=== PATIENT | female | born 1980 | race African-American/Black ===

== ENCOUNTER 2016-07-29 20:12 | Inpatient (IN) | payer OTHER ==
[~2016-07-29] VITALS: Ht 180.3 cm; Wt 129.5 kg
[~2016-07-29 20:12] MED LIST: PROV10TA PO
[2016-07-29 20:14] VITALS: BP 141/94; PULSE 108; RESP 16; TEMP 98.1; O2SAT 100
--- NOTE | 2016-07-29 21:22 | PD ---
HPI Chief Complaint: General Weakness Time Seen by Provider: 20:50 Travel History International Travel<30 days: No Contact w/Intl Traveler<30days: No Traveled to known affect area: No History of Present Illness HPI Patient is a 36 year old female who presents emergency department evaluation of vaginal bleeding. Patient states she's had dysfunctional uterine bleeding for several years, it's gotten worse over the last month. She states that she's feels tired, she is not on any iron supplementation because she states it gives her headache. Her bleeding has not worsened over the last month, it is not accompanied by abdominal pain, nausea, shortness of breath, dyspnea on exertion. Patient states that she has an appointment with her gold cutter on 09 August. [facility] Past Medical History Anemia: Yes Cancer: No Diabetes: No Diminished Hearing: No Endocrine: No Gastrointestinal Disorders: No Genitourinary: No Hepatitis: No Hiatal Hernia: No Hypertension: Yes Immune Disorder: No Implanted Vascular Access Dvce: No Musculoskeletal: Yes (BACK) Neurologic: Yes (STROKE at 19) Psychiatric: No Reproductive: Yes (FIBROIDS, dysfunctional uterine bleeding) Immunizations Current: No Thyroid Disease: No Tetanus Vaccination: > 5 Years ?: Not LMP: unknown : 2 Para: 2 Miscarriage: 0 : 0 Dilation and Curettage (D&C): Yes Past Surgical History Gynecologic Surgery: Yes (D&C) Other Surgery: No Family History Family History: Negative Social History Alcohol Use: No Tobacco Use: No Substance Use: No Allergies-Medications (Allergen,Severity, Reaction): Coded Allergies: No Known Allergies (Unverified , 07/29/16) Reported Meds & Prescriptions Reported Meds & Active Scripts Active Review of Systems Except as stated in HPI: all other systems reviewed are Neg General / Constitutional: Positive: Other (fatigue) Genitourinary: Positive: Menorrhagia Physical Exam Narrative GENERAL: Well-nourished, well-developed patient. SKIN: Warm and dry. HEAD: Normocephalic. EYES: No scleral icterus. No injection or drainage. NECK: Supple, trachea midline. No JVD or lymphadenopathy. CARDIOVASCULAR: Regular rate and rhythm without murmurs, gallops, or rubs. RESPIRATORY: Breath sounds equal bilaterally. No accessory muscle use. GASTROINTESTINAL: Abdomen soft, non-tender, nondistended. MUSCULOSKELETAL: No cyanosis, or edema. BACK: Nontender without obvious deformity. No CVA tenderness. Data Data Last Documented VS Vital Signs Date Time Temp Pulse Resp B/P Pulse Ox O2 Delivery O2 Flow Rate FiO2 07/29/16 23:41 98.5 88 20 124/74 98 07/29/16 20:14 Room Air Orders Complete Blood Count With Diff (07/29/16 20:48) Basic Metabolic Panel (Bmp) (07/29/16 20:48) Type And Screen (07/29/16 21:55) Red Blood Cells (Rbc) (07/29/16 22:07) Blood Product Administration .UPON TRANSFUSION (07/29/16 22:07) Us Pelvis Comp W Transvaginal (07/29/16 ) Blood Product Administration .UPON TRANSFUSION (07/29/16 23:30) Acetaminophen (Tylenol) (07/29/16 23:45) Diphenhydramine (Benadryl) (07/29/16 23:45) Admit Order (Ed Use Only) (07/29/16 23:38) Labs Laboratory Tests Test 07/29/16 07/29/16 21:00 21:15 White Blood Count 7.0 TH/MM3 Red Blood Count 3.20 MIL/MM3 Hemoglobin 7.0 GM/DL Hematocrit 21.1 % Mean Corpuscular Volume 66.0 FL Mean Corpuscular Hemoglobin 21.9 PG Mean Corpuscular Hemoglobin 33.2 % Concent Red Cell Distribution Width 27.6 % Platelet Count 520 TH/MM3 Mean Platelet Volume 9.2 FL Neutrophils (%) (Auto) % Lymphocytes (%) (Auto) % Monocytes (%) (Auto) % Eosinophils (%) (Auto) % Basophils (%) (Auto) % Neutrophils # (Auto) TH/MM3 Lymphocytes # (Auto) TH/MM3 Monocytes # (Auto) TH/MM3 Eosinophils # (Auto) TH/MM3 Basophils # (Auto) TH/MM3 CBC Comment AUTO DIFF Differential Total Cells 100 Counted Neutrophils % (Manual) 57 % Lymphocytes % 31 % Monocytes % 8 % Eosinophils % 2 % Basophils % 2 % Neutrophils # (Manual) 4.0 TH/MM3 Differential Comment FINAL DIFF MANUAL Platelet Estimate HIGH Platelet Morphology Comment NORMAL Target Cells 2+ Ovalocytes 1+ Sodium Level 137 MEQ/L Potassium Level 3.7 MEQ/L Chloride Level 103 MEQ/L Carbon Dioxide Level 24.0 MEQ/L Anion Gap 10 MEQ/L Blood Urea Nitrogen 10 MG/DL Creatinine 0.76 MG/DL Estimat Glomerular Filtration 104 ML/MIN Rate Random Glucose 104 MG/DL Calcium Level 8.8 MG/DL Blood Type O POSITIVE Antibody Screen NEGATIVE Crossmatch Leukocyte-Reduced Red Blood Cells Blood Bank Comment MDM Medical Decision Making Medical Screen Exam Complete: Yes Emergency Medical Condition: Yes Medical Record Reviewed: Yes Interpretation(s) Vital Signs Date Time Temp Pulse Resp B/P Pulse Ox O2 Delivery O2 Flow Rate FiO2 07/29/16 20:37 99 20 100 07/29/16 20:14 98.1 108 16 141/94 100 Room Air Differential Diagnosis Anemia versus dysfunctional uterine bleeding versus uterine fibroids versus other Narrative Course Patient is a 36-year-old female who presents emergency evaluation of dysfunctional uterine bleeding. Bleeding has been ongoing for several years but for the last month she states it's gotten worse. Patient was seen and evaluated in emergency Department approximately one week ago, at that time her hemoglobin was 9.8. We'll repeat a CBC and BMP at this time. Discussed with patient that if her hemoglobin is stable she will need to follow-up with SOFTWARE APPLICATIONS ARCHITECT as scheduled on August 09. Patient was encouraged to try a different oral iron supplementation. Patient's vital signs are stable, she is well oxygenated on room air, heart rate is in the 90s. CBC resulted with a hemoglobin of 7, patient was 9.8 approximately week and a half ago. Type and crossmatch ordered, ordered 2 units of packed red blood cells for transfusion. Discussed results with patient and her significant other. Discussed patient's presentation and lab findings with on-call COMMUNITY LIVING COACH Dr. Torres. He stated that he would come to emergency department to evaluate patient. Dr. Torres will admit patient to his service, he intends to perform a hysterectomy in the morning. Patient is hemodynamically stable, she is agreeable to plan. Diagnosis Primary Impression: Acute blood loss anemia Additional Impression: Menometrorrhagia Admitting Information Admitting Physician Requests: Admit Condition: Stable Giselle De La Fuente Jul 29, 2016 21:22
[2016-07-29 21:31] LABS: HEMATOCRIT 21.1 % (35.0-46.0); MEAN CORPUSCULAR HEMOGLOBIN 21.9 PG (27.0-34.0); MEAN CORPUSCULAR HGB CONC 33.2 % (32.0-36.0); PLATELET COUNT 520 TH/MM3 (150-450); RED CELL DISTRIBUTION WIDTH 27.6 % (11.6-17.2)
[2016-07-29 21:35] LABS: HEMO FLAGS AUTO DIFF
[2016-07-29 21:42] LABS: POTASSIUM 3.7 MEQ/L (3.5-5.1)
[2016-07-29 22:15] LABS: BASOPHILS 2 % (0-2); EOSINOPHILS 2 % (0-4); OVALOCYTES 1+ (NORMAL); PLATELET ESTIMATE SMEAR HIGH (NORMAL); PLATELET MORPHOLOGY NORMAL (NORMAL); POLYS (SEG NEUTROPHILS) 57 % (16-70); SCAN/DIFF FINAL DIFF MANUAL; TARGET CELLS 2+ (NORMAL); WBC DIFF SAMPLE 100
[2016-07-29 23:41] VITALS: BP 124/74; PULSE 88; RESP 20; TEMP 98.5; O2SAT 98
[2016-07-29] MEDS ORDERED: diphenhydrAMINE HCL 25 MG CAP PO ONE (23:45)
[2016-07-29] MEDS ORDERED: ACETAMINOPHEN 325 MG TAB PO ONE (23:45)
[2016-07-30] VITALS (10 sets, daily range): BP systolic 72–122; BP diastolic 66–81; PULSE 74–96; RESP 16–20; TEMP 96.9–98.4; O2SAT 97–100
[2016-07-30] MEDS: LACTATED RINGER'S 1000 ML INJ 1,000 ML IV SCH ×3 (00:45→13:07)
[2016-07-30] MEDS ORDERED: MORPHINE SULFATE 4 MG/ML INJ IV PUSH PRN (00:45)
[2016-07-30] MEDS ORDERED: oxyCODONE/ACETAMINOPHEN 5 MG/325 MG TAB PO PRN (00:45)
--- NOTE | 2016-07-30 01:05 | RADRPT ---
EXAM DATE/TIME: 07/30/2016 00:19 [facility] COMPARISON: No previous studies available for comparison. INDICATIONS : Bleeding. MEDICAL HISTORY : Hypertension. Fibroids. Anemia. SURGICAL HISTORY : Diliation and curettage. ENCOUNTER: Subsequent ACUITY: 3 days PAIN SCORE: 6/10 LOCATION: Bilateral pelvis MEASUREMENTS: UTERUS: 10.5 x 7.9 x 8.2 cm ENDOMETRIAL STRIPE: 4 mm RIGHT OVARY: 3.4 x 2.5 x 2.7 cm LEFT OVARY: 3.5 x 1.6 x 2.0 cm FINDINGS: UTERUS: The myometrium has homogeneous echotexture with 2 measurable masses.2 fundal masses one 2.6 x 3.2 x 2 .0 cm, the other 2.5 x 2.3 x 2.5 cm both leiomyoma RIGHT OVARY: Ovary contains no mass or significant cystic lesion. LEFT OVARY: Ovary contains no mass or significant cystic lesion. MISCELLANEOUS: No free fluid. CONCLUSION: Mild leiomyomatous uterus. Endometrial stripe is normal. Both ovaries unremarkable for age Joes Guadalupe Argueta MD on July 30, 2016 at 1:03 Board Certified Radiologist. This report was verified electronically.
--- NOTE | 2016-07-30 02:02 | HHI.HP ---
HPI Chief Complaint Vaginal bleeding Date Seen: Jul 29, 2016 Time Seen: 23:23 Travel History International Travel<30 Days: No Contact w/Intl Traveler<30Days: No Known Affected Area: No History of Present Illness HPI 36-year-old , last menstrual period was May 2016, patient presents to the ER complaining of profuse vaginal bleeding with passage of clots. Patient stated that for the past couple of months her bleeding has gotten worse , she was admitted from 07/06/16 to 07/09/16, at that time patient received 4 units of packed red blood cells transfusion. Patient reported that in February 2016 she underwent dilatation and curettage with endometrial ablation, however this was unsuccessful and she continues to bleed. Today the patient denies dizziness, lightheadedness, nausea ,vomiting, fever and chills. No loss of consciousness. Patient is requesting hysterectomy at this time. Para: 2 : 2 Miscarriage: 0 : 0 History Past Medical History Narrative Medical History of fibroids, abnormal uterine bleeding (status post blood transfusion ) , hypertension Obstetric History Obstetric History Spontaneous vaginal delivery 2 Past Surgical History Narrative Surgical Status post Dilatation and curettage 1, status post endometrial ablation February 2016 Family History Narrative Family History Grandfather with prostate cancer, father has a lump removed in the genital area , mother has hypertension, brother has heart disease and seizure disorder, sister has seizure disorder. Social History Alcohol Use: No Tobacco Use: No Substance Abuse: No Allergies-Medications (Allergen,Severity, Reaction): Coded Allergies: No Known Allergies (Unverified , 07/29/16) Home Meds Discontinued Scripts Medroxyprogesterone Acetate (Provera)10 Mg Tab10 Mg PO DAILY #7 TAB Ref 0 Start day 21 Prov:Ema Aldridge 07/17/16 Review of Systems Except as stated in HPI: all other systems reviewed are Neg Genitourinary: Vaginal Bleeding, Other (fibroids) Physical Exam Narrative GENERAL: Well-nourished, well-developed patient. SKIN: Warm and dry. HEAD: Normocephalic and atraumatic. EYES: No scleral icterus. No injection or drainage. ENT: No nasal drainage noted. Mucous membranes pink. Airway patent. NECK: Supple, trachea midline. No JVD. CARDIOVASCULAR: Regular rate and rhythm without murmurs, gallops, or rubs. RESPIRATORY: Breath sounds equal bilaterally. No accessory muscle use. BREASTS: Bilateral exam showed no masses , no retractions, no nipple discharge. ABDOMEN/GI: Abdomen soft, non-tender, bowel sounds present, no rebound, no guarding GENITOURINARY: External Genitalia: intact and normal in appearance BUS glands: Normal PELVIC EXAM: Normal external female genitalia, vulva no lesions, vagina no lesions,there is small amount of blood clot in the vaginal vault , cervix no lesions , there there is no active bleeding noted , the uterus is enlarged in size consistent with fibroid uterus EXTREMITIES: No cyanosis or edema. BACK: Nontender without obvious deformity. No CVA tenderness. NEUROLOGICAL: Awake and alert. Motor and sensory grossly within normal limits. Five out of 5 muscle strength in all muscle groups. Normal speech. Data Data Vital Signs Reviewed: Yes Orders Complete Blood Count With Diff (07/29/16 20:48) Basic Metabolic Panel (Bmp) (07/29/16 20:48) Type And Screen (07/29/16 21:55) Red Blood Cells (Rbc) (07/29/16 22:07) Blood Product Administration .UPON TRANSFUSION (07/29/16 22:07) Blood Product Administration .UPON TRANSFUSION (07/29/16 23:30) Acetaminophen (Tylenol) (07/29/16 23:45) Diphenhydramine (Benadryl) (07/29/16 23:45) Admit Order (Ed Use Only) (07/29/16 23:38) Us Pelvis Comp Doorperson/Non-Preg (07/30/16 ) Diet Regular Basic (07/30/16 Breakfast) Lactated Ringer's 1000 Ml Inj (Lr 1000 M (07/30/16 00:45) Morphine Inj (Morphine Inj) (07/30/16 00:45) Oxycodone-Acetamin 5-325 Mg (Percocet (07/30/16 00:45) Labs Laboratory Tests Test 07/29/16 07/29/16 21:00 21:15 White Blood Count 7.0 Red Blood Count 3.20 Hemoglobin 7.0 Hematocrit 21.1 Mean Corpuscular Volume 66.0 Mean Corpuscular Hemoglobin 21.9 Mean Corpuscular Hemoglobin 33.2 Concent Red Cell Distribution Width 27.6 Platelet Count 520 Mean Platelet Volume 9.2 Neutrophils (%) (Auto) Lymphocytes (%) (Auto) Monocytes (%) (Auto) Eosinophils (%) (Auto) Basophils (%) (Auto) Neutrophils # (Auto) Lymphocytes # (Auto) Monocytes # (Auto) Eosinophils # (Auto) Basophils # (Auto) CBC Comment AUTO DIFF Differential Total Cells 100 Counted Neutrophils % (Manual) 57 Lymphocytes % 31 Monocytes % 8 Eosinophils % 2 Basophils % 2 Neutrophils # (Manual) 4.0 Differential Comment FINAL DIFF MANUAL Platelet Estimate HIGH Platelet Morphology Comment NORMAL Target Cells 2+ Ovalocytes 1+ Sodium Level 137 Potassium Level 3.7 Chloride Level 103 Carbon Dioxide Level 24.0 Anion Gap 10 Blood Urea Nitrogen 10 Creatinine 0.76 Estimat Glomerular Filtration 104 Rate Random Glucose 104 Calcium Level 8.8 Blood Type O POSITIVE Antibody Screen NEGATIVE Crossmatch Leukocyte-Reduced Red Blood Cells Blood Bank Comment Assessment/Plan Problem List: (1) Leiomyoma (2) Abnormal uterine bleeding (AUB) (3) Acute blood loss anemia Assessment and Plan 36-year-old 002 with a history of leiomyomata, presents with abnormal uterine bleeding and acute blood loss anemia. Patient is hemodynamically stable. 1. Leiomyoma * We will order a pelvic ultrasound * Patient requests hysterectomy * We'll consult with a ENCODING CLERK attending sap integration architect 2. Abnormal uterine bleeding * Consider endometrial biopsy for tissue diagnosis * Patient is not bleeding at this time, she remains hemodynamically stable * We will transfuse 2 units of packed red blood cells * Bleeding precautions 3. Acute blood loss anemia * Patient is hemodynamically stable * We will transfuse 2 units of packed red blood cells * Bleeding precautions * Monitor vital signs Discharge Planning We'll discharge patient to home when bleeding is resolved Duane Nieves MD Jul 30, 2016 02:02
--- NOTE | 2016-07-30 14:10 | HHI.FPPN ---
Subjective Remarks No acute events overnight. Vital signs WNL. This morning patient states that she feels well but continues to have spotting. However, pt reports that the vaginal bleeding comes and goes in severity on a daily basis. Does feel better since getting fluids and transfusion. Objective Vitals Vital Signs Date Time Temp Pulse Resp B/P Pulse Ox O2 Delivery O2 Flow Rate FiO2 07/30/16 12:00 97.5 82 16 118/69 97 07/30/16 09:38 96.9 74 16 72/ 100 07/30/16 09:26 98.1 75 17 113/81 99 07/30/16 08:00 97.0 77 16 121/70 100 07/30/16 05:11 97.2 85 20 118/70 98 07/30/16 04:31 82 20 116/76 100 07/30/16 04:28 98.4 89 20 119/77 99 07/30/16 03:53 89 20 111/66 99 07/30/16 01:27 97.9 96 20 122/75 100 07/29/16 23:41 98.5 88 20 124/74 98 07/29/16 20:37 99 20 100 07/29/16 20:14 98.1 108 16 141/94 100 Room Air I/O 07/29/16 07/29/16 07/29/16 07/30/16 07/30/16 07/30/16 07:00 15:00 23:00 07:00 15:00 23:00 Intake Total 250 ml Balance 250 ml Intake IV Total 250 ml # Voids 1 Result Diagram: 07/29/16 2100 07/29/16 2100 Imaging Last Impressions Pelvis Ultrasound 07/30/16 0000 Signed Impressions: Service Date/Time: Saturday, July 30, 2016 00:19 - CONCLUSION: Mild leiomyomatous uterus. Endometrial stripe is normal. Both ovaries unremarkable for age Jose Guadalupe Argueta MD Objective Remarks GENERAL: Well-nourished, well-developed patient in no apparent distress. SKIN: Warm and dry. EYES: No scleral icterus. No injection or drainage. CARDIOVASCULAR: Regular rate and rhythm. No murmurs, gallops, or rubs. RESPIRATORY: No accessory muscle use. Clear to auscultation. Breath sounds equal bilaterally. GASTROINTESTINAL: Abdomen soft, non-tender, nondistended. Hepatic and splenic margins not palpable. MUSCULOSKELETAL: Extremities without clubbing, cyanosis, or edema. No obvious deformities. Normal gait NEUROLOGICAL: Awake and alert. Motor grossly within normal limits. Normal speech. PSYCHIATRIC: Appropriate mood and affect; insight and judgment normal. A/P Assessment and Plan 36-year-old 002 with a history of leiomyomata, presents with abnormal uterine bleeding and acute blood loss anemia. Patient is hemodynamically stable. 1. Abnormal uterine bleeding-recurrent. Has already required a transfusion a few weeks ago. * Initial H&H of 7.0/21.1 * S/p 3 PRBCs transfusion. Repeat H&H pending * Consider endometrial biopsy for tissue diagnosis 2. Leiomyoma * Pelvic ultrasound: Mild Leiomyomatous uterus. Normal endometrial stripe. Ovaries unremarkable. * Pt is scheduled to be seen by her ASSISTANT PUBLIC DEFENDER physician on 08/09/2016 as this was their only available appt. Will call on Sunday/Sunday to try and be seen sooner. Discharge: Today or tomorrow pending repeat H&H and status of vaginal bleeding. Pt fully aware of importance of keeping upcoming ASSISTANT PUBLIC DEFENDER appt and trying to get a sooner time. devon Cox Problem List: (1) Fibroid uterus Status: Chronic (2) Acute blood loss anemia Status: Acute (3) Abnormal uterine bleeding (AUB) Status: Acute Olga Devlin MD R2 Jul 30, 2016 14:10
--- NOTE | 2016-07-30 15:51 | HHI.DCPOC ---
Discharge Care Plan Diagnosis: (1) Abnormal uterine bleeding (AUB) (2) Leiomyoma Goals to Promote Your Health * To prevent worsening of your condition and complications * To maintain your health at the optimal level Directions to Meet Your Goals Take your medications as prescribed Follow your dietary instruction Follow activity as directed Keep your appointments as scheduled Take your immunizations and boosters as scheduled If your symptoms worsen call your PCP, if no PCP go to Urgent Care Center or Emergency Room Smoking is Dangerous to Your Health. Avoid second hand smoke Call the 24-hour hour crisis hotline for domestic abuse at Olga Devlin MD R2 Jul 30, 2016 15:51
[2016-07-30 16:33] LABS: AUTOMATED NEUTROPHIL # 2.9 TH/MM3 (1.8-7.7); BASOPHIL % 0.7 % (0.0-2.0); EOSINOPHIL # 0.2 TH/MM3 (0-0.4); EOSINOPHIL % 3.4 % (0.0-4.0); LYMPH % 40.7 % (9.0-44.0); LYMPHOCYTE # 2.6 TH/MM3 (1.0-4.8); MEAN CELL VOLUME 69.5 FL (80.0-100.0); MEAN CORPUSCULAR HEMOGLOBIN 23.7 PG (27.0-34.0); MEAN CORPUSCULAR HGB CONC 34.2 % (32.0-36.0); MONO % 10.8 % (0.0-8.0); NEUT % 44.4 % (16.0-70.0); PLATELET COUNT 447 TH/MM3 (150-450); RED BLOOD COUNT 3.59 MIL/MM3 (4.00-5.30); RED CELL DISTRIBUTION WIDTH 27.9 % (11.6-17.2); WHITE BLOOD COUNT 6.4 TH/MM3 (4.0-11.0)
[2016-07-30 16:34] LABS: HEMO FLAGS AUTO DIFF
--- NOTE | 2016-07-30 17:21 | HHI.FPPN ---
Addendum to progress note ADDENDUM Reason for addendum: Additonal documentation Additional information Repeat H&H after blood transfusion only showed a minimal increase to 8.5 hemoglobin. Clinically patient is doing well and she states that she is only having vaginal spotting. Vital signs are otherwise unremarkable. Counseled patient about the importance of low/minimum activity level/bed rest to help minimize any worsening vaginal bleeding until seen by her renewable energy technician. Again expressed to the patient that she is to call her doctor's office on Sunday or Sunday to try to make a sooner appointment due to these recurrent hospitalizations. Patient states she is comfortable with being discharged today and understands all recommendations. Olga Melara Dr., MD R2 Jul 30, 2016 17:21
[2016-07-30 17:24] LABS: TARGET CELLS 1+ (NORMAL)
[2016-07-30 17:25] LABS: PLATELET ESTIMATE SMEAR HIGH (NORMAL); PLATELET MORPHOLOGY NORMAL (NORMAL); SCAN/DIFF AUTO DIFF CONFIRMED
== END 2016-07-30 18:10 | disposition home or self-care (01) | DRG 812 ==
LOC: NEPE 20:12 → NEDA 23:41 → N07A 07-30 04:51
PROVIDERS: ADMIT Obstetrics & Gynecology; ATTEND Obstetrics & Gynecology
PROC: 30233N1 Transfusion of Nonautologous Red Blood Cells into Peripheral Vein, Percutaneous Approach (ICD-10-PCS; principal; 2016-07-30)
DX: D62 Acute posthemorrhagic anemia (principal); D25.9 Leiomyoma of uterus, unspecified; N93.8 Other specified abnormal uterine and vaginal bleeding; Z86.73 Personal history of transient ischemic attack (TIA), and cerebral infarction without residual deficits
CPT/HCPCS: 36430; 76856; 80048; 85007; 85025; 85027; 86850; 86900; 86901; 86920; 99285; J7120; P9016

== ENCOUNTER 2016-08-16 08:27 | Inpatient (IN) | payer OTHER ==
[~2016-08-16] VITALS: Ht 170.2 cm; Wt 80.0 kg
[2016-08-16 08:29] VITALS: BP 134/83; PULSE 90; RESP 20; TEMP 98; O2SAT 98
--- NOTE | 2016-08-16 09:22 | PD ---
HPI Chief Complaint: Edema Time Seen by Provider: 09:06 Travel History International Travel<30 days: No Contact w/Intl Traveler<30days: No Traveled to known affect area: No History of Present Illness HPI 36yo F with PMH of uterine fibroids and dysfunctional uterine bleeding presents to the ED with c/o bilateral lower extremity edema since blood transfusion beginning of this month. Pt states her vaginal bleeding started again this week , using multiple pads a day. Pt was admitted for anemia secondary to uterine bleeding and transfused 3 PRBC. Pt states she has feet edema before but this is the worst it has been. Pt states she is always sob since she had the anemia. Denies any calf pain, chest pain, n/v, abdominal pain, fever. Pt has started to have vaginal bleeding again and has not seen AUTOMOTIVE CENTER MANAGER yet. Pt also with frontal headache for 2-3 days that is her usual headache. Denies any neck pain , focal weakness or numbness, visual changes. Did not take anything for pain. PFSH Past Medical History Anemia: Yes Cancer: No Cardiovascular Problems: Yes (HTN) Diabetes: No Diminished Hearing: No Endocrine: No Gastrointestinal Disorders: No Genitourinary: No Hepatitis: No Hiatal Hernia: No Hypertension: Yes Immune Disorder: No Implanted Vascular Access Dvce: No Musculoskeletal: Yes (BACK) Neurologic: Yes (STROKE at 19) Psychiatric: No Reproductive: Yes (FIBROIDS, dysfunctional uterine bleeding) Respiratory: Yes Immunizations Current: No Thyroid Disease: No ?: Not : 2 Para: 2 Miscarriage: 0 : 0 Dilation and Curettage (D&C): Yes Past Surgical History Gynecologic Surgery: Yes (D&C) Other Surgery: No Social History Alcohol Use: No Tobacco Use: No Substance Use: No Allergies-Medications (Allergen,Severity, Reaction): Coded Allergies: No Known Allergies (Unverified , 08/16/16) Reported Meds & Prescriptions Reported Meds & Active Scripts Active No Active Prescriptions or Reported Medications Review of Systems Except as stated in HPI: all other systems reviewed are Neg Physical Exam Narrative GENERAL: 36yo F not in distress. SKIN: Warm and dry. HEAD: Atraumatic. Normocephalic. EYES: Pupils equal and round. No scleral icterus. No injection or drainage. ENT: No nasal bleeding or discharge. Mucous membranes pink and moist. NECK: Trachea midline. No JVD. CARDIOVASCULAR: Regular rate and rhythm. No murmur appreciated. RESPIRATORY: No accessory muscle use. Clear to auscultation. Breath sounds equal bilaterally. GASTROINTESTINAL: Abdomen soft, suprapubic tenderness to palpation. No rebound tenderness or guarding. PELVIC: Positive blood in vaginal vault. No CMT or adnexal tenderness. MUSCULOSKELETAL: +Pitting edema in bilateral tib/fib and dorsum of bilateral feet. No calf tenderness bilaterally. DP 2+. NEUROLOGICAL: Awake and alert. No obvious cranial nerve deficits. Motor grossly within normal limits. Normal speech. PSYCHIATRIC: Appropriate mood and affect; insight and judgment normal. Data Data Last Documented VS Vital Signs Date Time Temp Pulse Resp B/P Pulse Ox O2 Delivery O2 Flow Rate FiO2 08/16/16 11:30 20 08/16/16 08:29 98.0 90 134/83 98 Room Air Orders Complete Blood Count With Diff (08/16/16 09:16) Comprehensive Metabolic Panel (08/16/16 09:16) B-Type Natriuretic Peptide (08/16/16 09:16) Ketorolac Inj (Toradol Inj) (08/16/16 09:30) Admit Order (Ed Use Only) (08/16/16 11:56) Labs Laboratory Tests Test 08/16/16 09:50 White Blood Count 5.9 TH/MM3 Red Blood Count 3.66 MIL/MM3 Hemoglobin 7.9 GM/DL Hematocrit 24.1 % Mean Corpuscular Volume 65.8 FL Mean Corpuscular Hemoglobin 21.6 PG Mean Corpuscular Hemoglobin 32.9 % Concent Red Cell Distribution Width 30.3 % Platelet Count 214 TH/MM3 Mean Platelet Volume 8.7 FL Neutrophils (%) (Auto) % Lymphocytes (%) (Auto) % Monocytes (%) (Auto) % Eosinophils (%) (Auto) % Basophils (%) (Auto) % Neutrophils # (Auto) TH/MM3 Lymphocytes # (Auto) TH/MM3 Monocytes # (Auto) TH/MM3 Eosinophils # (Auto) TH/MM3 Basophils # (Auto) TH/MM3 CBC Comment AUTO DIFF Differential Total Cells 100 Counted Neutrophils % (Manual) 71 % Lymphocytes % 22 % Monocytes % 3 % Eosinophils % 2 % Basophils % 2 % Neutrophils # (Manual) 4.2 TH/MM3 Differential Comment FINAL DIFF MANUAL Platelet Estimate NORMAL Platelet Morphology Comment NORMAL Target Cells 2+ Keratocytes OCC Sodium Level 141 MEQ/L Potassium Level 3.4 MEQ/L Chloride Level 107 MEQ/L Carbon Dioxide Level 26.1 MEQ/L Anion Gap 8 MEQ/L Blood Urea Nitrogen 7 MG/DL Creatinine 0.73 MG/DL Estimat Glomerular Filtration 109 ML/MIN Rate Random Glucose 102 MG/DL Calcium Level 8.9 MG/DL Total Bilirubin 0.5 MG/DL Aspartate Amino Transf 13 U/L (AST/SGOT) Alanine Aminotransferase 16 U/L (ALT/SGPT) Alkaline Phosphatase 92 U/L B-Type Natriuretic Peptide 19 PG/ML Total Protein 8.2 GM/DL Albumin 3.5 GM/DL Human Chorionic Gonadotropin, LESS THAN 1 Quant MIU/ML MDM Medical Decision Making Medical Screen Exam Complete: Yes Emergency Medical Condition: Yes Differential Diagnosis CHF vs. nephrotic syndrome vs. venous insufficiency Narrative Course 36yo F with anemia secondary to uterine fibroids. H/H 7.9/24.1. Will transfuse 1 unit of PRBC since pt is actively bleeding. VS stable. BNP 19. Liver enzyme normal. Pt is very frustrated with her uterine bleeding. Discussed with Dr. John CHURCHILL who states that she will let Dr. Tafoya know to see the patient and discuss hysterectomy during this admission. Discussed with family resident physician and admitted to Dr. Shah for symptomatic anemia. Diagnosis Primary Impression: Abnormal uterine bleeding (AUB) Admitting Information Admitting Physician Requests: Admit Scripts No Active Prescriptions or Reported Meds Stephanie Hadley DO Aug 16, 2016 09:22
[2016-08-16] MEDS ORDERED: KETOROLAC TROMETHAMINE 30 MG/ML (IVP) VIAL IV PUSH ONE (09:30)
[2016-08-16 10:06] LABS: HEMATOCRIT 24.1 % (35.0-46.0); MEAN CELL VOLUME 65.8 FL (80.0-100.0); MEAN CORPUSCULAR HEMOGLOBIN 21.6 PG (27.0-34.0); MEAN CORPUSCULAR HGB CONC 32.9 % (32.0-36.0); PLATELET COUNT 214 TH/MM3 (150-450); RED BLOOD COUNT 3.66 MIL/MM3 (4.00-5.30); RED CELL DISTRIBUTION WIDTH 30.3 % (11.6-17.2); WHITE BLOOD COUNT 5.9 TH/MM3 (4.0-11.0)
[2016-08-16 10:12] LABS: HEMO FLAGS AUTO DIFF
[2016-08-16 10:23] LABS: ALT (GPT) 16 U/L (10-53); ANION GAP 8 MEQ/L (5-15); AST (GOT) 13 U/L (15-37); BICARBONATE 26.1 MEQ/L (21.0-32.0); BLOOD UREA NITROGEN 7 MG/DL (7-18); CHLORIDE 107 MEQ/L (98-107); GLOMERULAR FILTRATION RATE 109 ML/MIN (>89); POTASSIUM 3.4 MEQ/L (3.5-5.1); SODIUM (NA) 141 MEQ/L (136-145)
[2016-08-16 10:25] LABS: ALKALINE PHOSPHATASE 92 U/L (45-117); TOTAL BILIRUBIN ADULT 0.5 MG/DL (0.2-1.0)
[2016-08-16 10:59] LABS: BASOPHILS 2 % (0-2); EOSINOPHILS 2 % (0-4); NEUTROPHIL # MANUAL DIFF 4.2 TH/MM3 (1.8-7.7); POLYS (SEG NEUTROPHILS) 71 % (16-70); SCAN/DIFF FINAL DIFF MANUAL; WBC DIFF SAMPLE 100
[2016-08-16 11:00] LABS: KERATOCYTES OCC (NORMAL); PLATELET ESTIMATE SMEAR NORMAL (NORMAL); PLATELET MORPHOLOGY NORMAL (NORMAL); TARGET CELLS 2+ (NORMAL)
[2016-08-16] MEDS ORDERED: SODIUM CHLORIDE 0.9% FLUSH 5 ML FLUSH FLUSH PRN (12:15)
[2016-08-16] MEDS ORDERED: SODIUM CHLOR 0.9% 250 ML INJ 250 ML IV ONE (12:15)
[2016-08-16] MEDS ORDERED: ONDANSETRON HCL 4 MG/2 ML VIAL IVP PRN (12:15)
[2016-08-16] MEDS ORDERED: ACETAMINOPHEN 325 MG TAB PO PRN (12:15)
[2016-08-16] MEDS ORDERED: NALOXONE HCL 0.4 MG/ML AMP IV PRN (12:15)
[2016-08-16] MEDS ORDERED: FUROSEMIDE 20 MG TAB PO ONE (12:30)
--- NOTE | 2016-08-16 12:34 | HHI.HP ---
[facility] Service Family Medicine Primary Care Physician No Primary Care Physician Admission Diagnosis Symptomatic anemia Diagnoses: Chief Complaint: Vaginal bleeding International Travel<30 Days: No Contact w/Intl Traveler<30days: No Known Affected Area: No History of Present Illness Is a 36-year-old female with a past medical history significant for leiomyomata and abnormal uterine bleeding requiring blood transfusions who presents today for vaginal bleeding. Of note, patient was hospitalized from 07/29-07/30 for acute blood loss anemia secondary to abnormal uterine bleeding as well. She was transfused a total of 3 units of packed red blood cells. After discharge, she continued spotting for about one week and then stopped bleeding altogether for about 3 days. After that, the bleeding started again and then turned into passing of large clots. The bleeding has been getting progressively worse over the past week. Today, she has soaked 4 pads in the last 23 hours. She also complains of fatigue, occasional shortness of breath, and a constant, aching, frontal headache. She also endorses central pelvic pain described as a sharp pain that comes and goes. She denies any chest pain, dizziness, or lightheadedness. Her feet initially swelled up after her transfusions during her last hospitalization, and have become progressively more swollen over the past 2 days. She was supposed to follow-up with [place] [facility] at an appointment yesterday, but was apparently told not to come to the appointment because she was actively bleeding. She rescheduled that appointment for next week. Review of Systems Constitutional: COMPLAINS OF: Fatigue, DENIES: Fever, Chills, Dizziness Endocrine: COMPLAINS OF: Abnorml menstrual pattern Eyes: DENIES: Blurred vision, Vision loss Ears, nose, mouth, throat: DENIES: Running Nose Respiratory: COMPLAINS OF: Shortness of breath (occasional), DENIES: Cough Cardiovascular: COMPLAINS OF: Lower Extremity Edema, DENIES: Chest pain, Syncope Gastrointestinal: COMPLAINS OF: Abdominal pain, DENIES: Black stools, Bloody stools, Constipation, Diarrhea, Nausea, Vomiting Genitourinary: COMPLAINS OF: Abnormal vaginal bleeding, DENIES: Urinary frequency, Hematuria, Dysuria, Vaginal discharge Musculoskeletal: COMPLAINS OF: Back pain Integumentary: DENIES: Rash Hematologic/lymphatic: DENIES: Bruising Neurologic: COMPLAINS OF: Headache Psychiatric: DENIES: Mood changes Past Family Social History Past Medical History Leiomyomata Obstetric history: s/p x 2 in 1998, 1999 without complications Past Surgical History D &C, endometrial ablation in February 2016 for abnormal uterine bleeding Reported Medications Reported Meds & Active Scripts Active No Active Prescriptions or Reported Medications Allergies: Coded Allergies: No Known Allergies (Unverified , 08/16/16) Family History Mother: Hysterectomy due to abnormal uterine bleeding, hypertension Father: Hypertension Brother: DM type II, seizures Social History No tobacco, alcohol, or illicit drug use. Lives with . Physical Exam Vital Signs Vital Signs Date Time Temp Pulse Resp B/P Pulse Ox O2 Delivery O2 Flow Rate FiO2 08/16/16 11:30 20 08/16/16 08:29 98.0 90 20 134/83 98 Room Air Physical Exam GENERAL: This is a well-nourished, well-developed obese female patient, in no apparent distress. SKIN: No rashes, ecchymoses or lesions. Cool and dry. HEAD: Atraumatic. Normocephalic. No temporal or scalp tenderness. EYES: Pupils equal round and reactive. Extraocular motions intact. No scleral icterus. No injection or drainage. ENT: Nose without bleeding, purulent drainage or septal hematoma. Throat without erythema, tonsillar hypertrophy or exudate. Uvula midline. Airway patent. NECK: Trachea midline. No JVD or lymphadenopathy. Supple, nontender, no meningeal signs. CARDIOVASCULAR: Regular rate and rhythm without murmurs, gallops, or rubs. RESPIRATORY: Clear to auscultation. Breath sounds equal bilaterally. No wheezes , rales, or rhonchi. GASTROINTESTINAL: Abdomen soft, tender to palpation in central lower abdomen, nondistended. No hepato-splenomegaly, or palpable masses. No guarding. MUSCULOSKELETAL: Bilateral lower extremities with 1+ pitting edema up to the mid tibia. NEUROLOGICAL: Awake and alert. Cranial nerves II through XII intact. Motor and sensory grossly within normal limits. Normal speech. Laboratory Laboratory Tests Test 08/16/16 09:50 White Blood Count 5.9 Red Blood Count 3.66 Hemoglobin 7.9 Hematocrit 24.1 Mean Corpuscular Volume 65.8 Mean Corpuscular Hemoglobin 21.6 Mean Corpuscular Hemoglobin 32.9 Concent Red Cell Distribution Width 30.3 Platelet Count 214 Mean Platelet Volume 8.7 Neutrophils (%) (Auto) Lymphocytes (%) (Auto) Monocytes (%) (Auto) Eosinophils (%) (Auto) Basophils (%) (Auto) Neutrophils # (Auto) Lymphocytes # (Auto) Monocytes # (Auto) Eosinophils # (Auto) Basophils # (Auto) CBC Comment AUTO DIFF Differential Total Cells 100 Counted Neutrophils % (Manual) 71 Lymphocytes % 22 Monocytes % 3 Eosinophils % 2 Basophils % 2 Neutrophils # (Manual) 4.2 Differential Comment FINAL DIFF MANUAL Platelet Estimate NORMAL Platelet Morphology Comment NORMAL Target Cells 2+ Keratocytes OCC Sodium Level 141 Potassium Level 3.4 Chloride Level 107 Carbon Dioxide Level 26.1 Anion Gap 8 Blood Urea Nitrogen 7 Creatinine 0.73 Estimat Glomerular Filtration 109 Rate Random Glucose 102 Calcium Level 8.9 Total Bilirubin 0.5 Aspartate Amino Transf 13 (AST/SGOT) Alanine Aminotransferase 16 (ALT/SGPT) Alkaline Phosphatase 92 B-Type Natriuretic Peptide 19 Total Protein 8.2 Albumin 3.5 Result Diagram: 08/16/16 0950 08/16/16 0950 Assessment and Plan Assessment and Plan Patient is a 36-year-old female with a past medical history significant for leiomyomata and abnormal uterine bleeding requiring blood transfusions who presents today for vaginal bleeding and is admitted for acute blood loss anemia secondary to abnormal uterine bleeding. Code Status Full Code Discussed Condition With dw Dr. Shah and Dr. Monteiro Problem List: (1) Acute blood loss anemia Status: Acute Plan: H/H 7.9/24.1 on admission Last hemoglobin was 8.5 on 07/30 after 3 units PRBC Symptoms include occasional shortness of breath, fatigue, and headache Acute blood loss anemia secondary to vaginal bleeding Plan: - Consult Gynecology - 1 unit PRBC pending, follow-up post-transfusion H/H and monitor H/H Q6H thereafter until resolution of bleeding - Lasix 20mg PO once prior to transfusion - CXR to evaluate for pulmonary congestion in the setting of lower extremity edema - Monitor I's/O's (2) Abnormal uterine bleeding (AUB) Status: Acute Plan: 07/30 Pelvic US: Mild Leiomyomatous uterus. Normal endometrial stripe. Both ovaries unremarkable for age. See plan above. (3) Nutrition, metabolism, and development symptoms Status: Acute Plan: Fluids: None Electrolytes: wnl, continue to monitor and replete as needed Nutrition: Regular Basic Diet DVT PPx: SCD's, hold chemical anticoagulation for active bleed Physician Certification 2 Midnight Certification Type: Admission for Inpatient Services Order for Inpatient Services The services are ordered in accordance with Medicare regulations or non- Medicare payer requirements, as applicable. In the case of services not specified as inpatient-only, they are appropriately provided as inpatient services in accordance with the 2-midnight benchmark. Estimated LOS (days): 2 days is the estimated time the patient will need to remain in the hospital, assuming treatment plan goals are met and no additional complications. Post-Hospital Plan: Home Maria Dolores Menendez MD R2 Aug 16, 2016 12:34
[2016-08-16 12:38] LABS: BETA HCG QUANT LESS THAN 1 MIU/ML (0-5)
--- NOTE | 2016-08-16 12:46 | RADRPT ---
EXAM DATE/TIME: 08/16/2016 12:38 [place] COMPARISON: CHEST PA & LAT, July 06, 2016, 10:58. INDICATIONS : Short of breath. MEDICAL HISTORY : None. SURGICAL HISTORY : None. ENCOUNTER: Initial ACUITY: 1 year PAIN SCORE: 2/10 LOCATION: Left chest FINDINGS: PA and lateral views of the chest demonstrate the lungs to be symmetrically aerated without evidence of mass, infiltrate or effusion. The heart size appears mildly enlarged, stable. Osseous structures a re intact. CONCLUSION: Mild cardiomegaly. Otherwise unremarkable exam. Delmy Rodriguez MD on August 16, 2016 at 12:45 Board Certified Radiologist. This report was verified electronically.
[2016-08-16 13:00] VITALS: BP 130/80; PULSE 88; RESP 16; O2SAT 98
[2016-08-16 16:00] VITALS: BP 123/80; PULSE 88; RESP 19; TEMP 98.1; O2SAT 100
[2016-08-16 17:50] VITALS: BP 123/80; PULSE 88; RESP 19; TEMP 98.1; O2SAT 100
[2016-08-16 20:00] VITALS: BP 117/74; PULSE 80; PULSE 82; RESP 18; TEMP 98.7; O2SAT 100
[2016-08-16] MEDS: SODIUM CHLORIDE 0.9% FLUSH 5 ML FLUSH FLUSH SCH (20:39)
[2016-08-16 21:30] VITALS: BP 120/60; PULSE 92; RESP 16; TEMP 97.6; O2SAT 100
[2016-08-17] VITALS (7 sets, daily range): BP systolic 113–151; BP diastolic 67–99; PULSE 82–98; RESP 17–20; TEMP 97.3–99.4; O2SAT 81–100
[2016-08-17 00:13] LABS: HEMATOCRIT 22.5 % (35.0-46.0)
[2016-08-17 00:14] LABS: REVIEW FLAG FINAL
[2016-08-17] MEDS ORDERED: SODIUM CHLOR 0.9% 250 ML INJ 250 ML IV ONE ×2 (02:00→12:00)
[2016-08-17 04:53] LABS: HEMATOCRIT 22.3 % (35.0-46.0); MEAN CELL VOLUME 67.5 FL (80.0-100.0); MEAN CORPUSCULAR HEMOGLOBIN 22.1 PG (27.0-34.0); MEAN CORPUSCULAR HGB CONC 32.7 % (32.0-36.0); PLATELET COUNT 180 TH/MM3 (150-450); RED BLOOD COUNT 3.31 MIL/MM3 (4.00-5.30); RED CELL DISTRIBUTION WIDTH 29.9 % (11.6-17.2); WHITE BLOOD COUNT 6.2 TH/MM3 (4.0-11.0)
[2016-08-17 05:10] LABS: HEMO FLAGS AUTO DIFF
[2016-08-17 05:13] LABS: BICARBONATE 24.8 MEQ/L (21.0-32.0); POTASSIUM 3.1 MEQ/L (3.5-5.1)
[2016-08-17] MEDS ORDERED: POTASSIUM CHLORIDE 10 MEQ CONTROLLED RELEASE TAB PO ONE (05:30)
[2016-08-17 08:03] LABS: BASOPHILS 1 % (0-2); EOSINOPHILS 2 % (0-4); NEUTROPHIL # MANUAL DIFF 4.5 TH/MM3 (1.8-7.7); PLATELET ESTIMATE SMEAR NORMAL (NORMAL); PLATELET MORPHOLOGY NORMAL (NORMAL); POLYS (SEG NEUTROPHILS) 73 % (16-70); SCAN/DIFF FINAL DIFF MANUAL; WBC DIFF SAMPLE 100
[2016-08-17 08:04] LABS: KERATOCYTES OCC (NORMAL); TARGET CELLS 1+ (NORMAL)
[2016-08-17] MEDS: SODIUM CHLORIDE 0.9% FLUSH 5 ML FLUSH FLUSH SCH ×2 (08:31→21:00)
--- NOTE | 2016-08-17 09:20 | HHI.FPPN ---
Subjective Remarks Patient seen and examined this am. Has gotten 1 unit of blood, another pending. She continues to have significant vaginal bleeding, saturating multiple pads in an hour. Has some LE achiness. She denies dizziness or lightheadedness. Her vitals are stable. She has had a D&C in the past, she tolerated the surgery and had no issues with transfusion. (Penelope Harrell MD R3) Objective Vitals Vital Signs Date Time Temp Pulse Resp B/P Pulse Ox O2 Delivery O2 Flow Rate FiO2 08/17/16 08:14 97.4 86 19 126/69 99 08/17/16 04:00 97.8 84 19 113/69 100 08/17/16 00:00 97.3 84 20 122/67 100 08/16/16 21:30 97.6 92 16 120/60 100 08/16/16 20:00 98.7 80 18 117/74 100 08/16/16 20:00 82 08/16/16 17:50 98.1 88 19 123/80 100 08/16/16 16:00 98.1 88 19 123/80 100 08/16/16 13:00 88 16 130/80 98 Room Air 08/16/16 11:30 20 I/O 08/16/16 08/16/16 08/16/16 08/17/16 08/17/16 08/17/16 07:00 15:00 23:00 07:00 15:00 23:00 Intake Total 598 ml 0 ml 240 ml Balance 598 ml 0 ml 240 ml Intake Oral 240 ml 240 ml IV Total 50 ml 0 ml Packed Cells 308 ml # Voids 5 # Bowel Movements 0 (Penelope Harrell MD R3) Result Diagram: 08/17/16 0409 08/17/16 0409 Imaging Last Impressions Chest X-Ray 08/16/16 1213 Signed Impressions: Service Date/Time: Tuesday, August 16, 2016 12:38 - CONCLUSION: Mild cardiomegaly. Otherwise unremarkable exam. Delmy Rodriguez MD Objective Remarks GENERAL: This is a well-nourished, well-developed obese female patient, in no apparent distress. SKIN: No rashes, ecchymoses or lesions. Cool and dry. HEAD: Atraumatic. Normocephalic. No temporal or scalp tenderness. EYES: Pupils equal round and reactive. Extraocular motions intact. No scleral icterus. No injection or drainage. ENT: Nose without bleeding, purulent drainage or septal hematoma. Throat without erythema, tonsillar hypertrophy or exudate. Uvula midline. Airway patent. NECK: Trachea midline. No JVD or lymphadenopathy. Supple, nontender, no meningeal signs. CARDIOVASCULAR: Regular rate and rhythm without murmurs, gallops, or rubs. RESPIRATORY: Clear to auscultation. Breath sounds equal bilaterally. No wheezes , rales, or rhonchi. GASTROINTESTINAL: Abdomen soft, tender to palpation in central lower abdomen, nondistended. No hepato-splenomegaly, or palpable masses. No guarding. MUSCULOSKELETAL: Bilateral lower extremities with 1+ pitting edema up to the mid tibia. NEUROLOGICAL: Awake and alert. Cranial nerves II through XII intact. Motor and sensory grossly within normal limits. Normal speech. (Penelope Harrell MD R3) A/P Assessment and Plan Patient is a 36-year-old female with a past medical history significant for leiomyomata and abnormal uterine bleeding requiring blood transfusions who presents today for vaginal bleeding and is admitted for acute blood loss anemia secondary to abnormal uterine bleeding. Discharge Planning pending further clinical eval and procedure by gym. (Penelope Harrell MD R3) Attending Attestation Patient seen and examined. Case reviewed and discussed with the resident team, Dr Harrell, Dr Mcfadden, Dr Monteiro and Dr Linton. Agree with plan of care as discussed with me and documented in the resident note (Saurabh Shah MD) Problem List: (1) Acute blood loss anemia Status: Acute Plan: H/H 7.9/24.1 on admission, has gotten 1 unit now 7.3. Another unit ordered, will obtain Hb/hct after Acute blood loss anemia secondary to vaginal bleeding Plan: - Consult Gynecology - monitor H/H Q6H thereafter until resolution of bleeding - Lasix 20mg PO was give prior to blood transfusion due to cardiomegaly, may require addition doses - She is medically clear for surgery. (2) Abnormal uterine bleeding (AUB) Status: Acute Plan: 07/30 Pelvic US: Mild Leiomyomatous uterus. Normal endometrial stripe. Both ovaries unremarkable for age. See plan above. (3) Nutrition, metabolism, and development symptoms Status: Acute Plan: Fluids: None Electrolytes: wnl, continue to monitor and replete as needed Nutrition: Regular Basic Diet DVT PPx: SCD's, hold chemical anticoagulation for active bleed (Penelope Harrell MD R3) Penelope Harrell MD R3 Aug 17, 2016 09:20 Saurabh Shah MD Aug 18, 2016 14:32
--- NOTE | 2016-08-17 10:55 | PD.CONS ---
HPI Chief Complaint vaginal bleeding Date Seen: Aug 17, 2016 Time Seen: 10:15 (Sreedhar Mckeon MD R1) Chief Complaint 36 yo with long-standing history of uterine fibroids and AUB with intermittent anemia that has required blood transfusions. She is s/p a D&C with Novasure endometrial ablation FEB [address] Hopkins. At that time she did not desire a hysterectomy. The pathology was normal for the endometrial and endocervical curettage. She was discharged from Dr. Hopkins's practice after her post-op visit and had a change of insurance, a different [employer] [place]. She reports worsening of her irregular bleeding after the ablation. She was seen in the ER in Mar, and several times in June for heavy bleeding. Her Hgb had been stable around 10. July 29, she was seen again the ER with a Hgb of 7.0 and she was admitted for another blood transfusion. She had a new FACILITY MANAGER appointment with [facility] in August, but represented yesterday with heavy bleeding and anemia with Hgb 7.9 She received 1 unit of PRBC yesterday and was started on daily Provera, but her repeat Hgb was 7.5 and this AM 7.3. She continues to have heavy vaginal bleeding. She is wearing 3 large pads and changing every 1-2 hours. She reports severe fatigue and cramping, but her dizziness has improved. She denies SOB or CP. (Evelyne Lester MD) Travel History International Travel<30 Days: No Contact w/Intl Traveler<30Days: No Known Affected Area: No (Sreedhar Mckeon MD R1) History of Present Illness HPI 36 y/o presents for vaginal bleeding. She states she has had constant bleeding for the last 3 years. It has progressively worsened. She was hospitalized at the end of June 2016 for the same problem. At that time an ultrasound was performed, which showed a leiomyomatous uterus. She was to follow-up outpatient with her FACILITY MANAGER doctor, but never did because she switched insurances and was unable to be seen by them. She did see Dr. Hopkins in February of 2016 for a D&C, which worsened the problem , per patient. She did have an appointment made with [place] [facility] the day of admission. Now has a rescheduled appointment for September 04. She continues to soak through several pads a day and states the bleeding is constant. States she expels several clots a day. Endorses headaches and lightheadedness. Occasional abdominal cramping. Denies syncope. Occasional shortness of breath. Had leg swelling the day she came in, improved today. Patient had menarche at age 12 and had regular periods lasting 3-5 days every month, until 3 years ago it progressed to heavier, daily bleeding. She was transfused 1 unit pRBC yesterday and has 1 pending today. Pt is interested in a hysterectomy. Para: 2 : 2 (Sreedhar Mckeon MD R1) History Past Medical History Narrative Medical HTN (Sreedhar Mckeon MD R1) Narrative Medical ?TIA as teenager (Evelyne Lester MD) Obstetric History Obstetric History SVDx2, both at term, no complications (Sreedhar Mckeon MD R1) Past Surgical History Narrative Surgical D&C 02/2016 (Sreedhar Mckeon MD R1) Family History Narrative Family History Mother with fibroids, had hysterectomy (Sreedhar Mckeon MD R1) Social History Alcohol Use: No Tobacco Use: No Substance Abuse: No (Sreedhar Mckeon MD R1) Allergies-Medications (Allergen,Severity, Reaction): Coded Allergies: No Known Allergies (Unverified , 08/16/16) Home Meds No Active Prescriptions or Reported Meds Review of Systems General / Constitutional: No: Fever, Weight Gain, Weight Loss, Chills Eyes: No: Blurred Vision, Visual changes HENT: Headaches, Lightheadedness Cardiovascular: No: Irregular Rhythm, Chest Pain or Discomfort, Palpitations Respiratory: Short of Breath, No: Cough Gastrointestinal: No: Nausea, Vomiting, Diarrhea, Abdominal Pain, Constipation Genitourinary: Vaginal Bleeding, No: Frequency, Dysuria, Pelvic Pain Musculoskeletal: Edema, No: Weakness Skin: No Rash, No Itching Neurologic: Dizziness, Headache, No: Weakness Psychiatric: No: Anxiety, Depression Endocrine: No: Heat Intolerance, Cold Intolerance Hematologic/Lymphatic: No Easy Bruising, No Lymph Node Enlargement (Sreedhar Mckeon MD R1) Physical Exam Narrative GENERAL: Well-nourished, well-developed patient. SKIN: Warm and dry. HEAD: Normocephalic and atraumatic. EYES: No scleral icterus. No injection or drainage. ENT: No nasal drainage noted. Mucous membranes pink. Airway patent. NECK: Supple, trachea midline. No JVD. CARDIOVASCULAR: Regular rate and rhythm without murmurs, gallops, or rubs. RESPIRATORY: Breath sounds equal bilaterally. No accessory muscle use. ABDOMEN/GI: Abdomen soft, non-tender, bowel sounds present, no rebound, no guarding GENITOURINARY: External Genitalia: intact and normal in appearance, actively bleeding EXTREMITIES: 1+ edema bilaterally lower extremities BACK: Nontender without obvious deformity. No CVA tenderness. NEUROLOGICAL: Awake and alert. Motor and sensory grossly within normal limits. Five out of 5 muscle strength in all muscle groups. Normal speech. (Sreedhar Mckeon MD R1) Narrative : Heavy vaginal bleeding noted on exam by Dr. Trevino. (Evelyne Lester MD) Data Data Vital Signs Reviewed: Yes Orders Admit Order (Ed Use Only) (08/16/16 11:56) Type And Screen (08/16/16 12:12) Red Blood Cells (Rbc) (08/16/16 12:12) Blood Product Administration .UPON TRANSFUSION (08/16/16 12:12) Sodium Chlor 0.9% 250 Ml Inj (Ns 250 Ml (08/16/16 12:15) Admit To Inpatient (08/16/16 ) Code Status (08/16/16 12:13) Vital Signs (Adult) Q4H (08/16/16 12:13) Activity Oob Ad Kami (08/16/16 12:13) ^ Children'S Aide / Telemetry .CONTINUOUS (08/16/16 12:13) Intake + Output JANAE.QSHIFT (08/16/16 12:13) Diet Regular Basic (08/16/16 Lunch) Sodium Chloride 0.9% Flush (Ns Flush) (08/16/16 12:15) Sodium Chloride 0.9% Flush (Ns Flush) (08/16/16 21:00) Acetaminophen (Tylenol) (08/16/16 12:15) Ondansetron Inj (Zofran Inj) (08/16/16 12:15) Basic Metabolic Panel (Bmp) (08/17/16 06:00) Complete Blood Count With Diff (08/17/16 06:00) Prothrombin Time / Inr (Pt) (08/16/16 12:13) Chest, Pa & Lat (08/16/16 12:13) Electrocardiogram (08/16/16 12:13) Case Management Consult (08/16/16 12:13) Scd Bilateral/Knee High JANAE.BID (08/16/16 12:13) Naloxone Inj (Narcan Inj) (08/16/16 12:15) Inpatient Certification (08/16/16 ) Beta Hcg (Quant/Titer) (08/16/16 12:13) Furosemide (Lasix) (08/16/16 12:30) ^ Instruction (08/16/16 12:18) Consult Gynecology (08/16/16 ) (Hub Use Only)Inp Phy Cons/Ref (08/16/16 ) Hgb & Hct (08/16/16 22:30) ^ Instruction (08/16/16 21:45) Red Blood Cells (Rbc) (08/17/16 02:00) Blood Product Administration .UPON TRANSFUSION (08/17/16 02:00) Sodium Chlor 0.9% 250 Ml Inj (Ns 250 Ml (08/17/16 02:00) Potassium Chloride (Kcl) (08/17/16 05:30) Cbc No Diff, Includes Plts (08/18/16 06:00) Basic Metabolic Panel (Bmp) (08/18/16 06:00) Hgb & Hct (08/17/16 10:00) Blood Product Administration .UPON TRANSFUSION (08/17/16 09:15) Labs Laboratory Tests Test 08/16/16 08/16/16 08/16/16 08/17/16 13:10 15:27 23:28 02:08 Blood Type O POSITIVE O POSITIVE Antibody Screen NEGATIVE Crossmatch Leukocyte-Reduced Leukocyte-Reduced Red Blood Red Blood Cells Cells Blood Bank Comment Prothrombin Time 11.0 Prothromb Time International 1.0 Ratio Hemoglobin 7.5 Hematocrit 22.5 Test 08/17/16 04:09 White Blood Count 6.2 Red Blood Count 3.31 Hemoglobin 7.3 Hematocrit 22.3 Mean Corpuscular Volume 67.5 Mean Corpuscular Hemoglobin 22.1 Mean Corpuscular Hemoglobin 32.7 Concent Red Cell Distribution Width 29.9 Platelet Count 180 Mean Platelet Volume 9.5 Neutrophils (%) (Auto) Lymphocytes (%) (Auto) Monocytes (%) (Auto) Eosinophils (%) (Auto) Basophils (%) (Auto) Neutrophils # (Auto) Lymphocytes # (Auto) Monocytes # (Auto) Eosinophils # (Auto) Basophils # (Auto) CBC Comment AUTO DIFF Differential Total Cells 100 Counted Neutrophils % (Manual) 73 Lymphocytes % 22 Monocytes % 2 Eosinophils % 2 Basophils % 1 Neutrophils # (Manual) 4.5 Differential Comment FINAL DIFF MANUAL Platelet Estimate NORMAL Platelet Morphology Comment NORMAL Target Cells 1+ Keratocytes OCC Sodium Level 138 Potassium Level 3.1 Chloride Level 104 Carbon Dioxide Level 24.8 Anion Gap 9 Blood Urea Nitrogen 7 Creatinine 0.74 Estimat Glomerular Filtration 107 Rate Random Glucose 117 Calcium Level 8.4 (Sreedhar Mckeon MD R1) Vital Signs Reviewed: Yes Labs CBC Diagram 08/16/16 23:28 08/17/16 04:09 (Evelyne Lester MD) [facility] Medical Record Reviewed: Yes Interpretation(s) 36 y/o with abnormal uterine bleeding and leiomyomatous uterus Hb 7.3, dropping, even after 1 pRBC transfusion Actively bleeding on exam & symptomatic Plan - Provera 10mg daily x14 days - Consult with Dr. Hopkins, previous FACILITY MANAGER doctor for patient - Recommend hysterectomy - Transfuse pRBC as needed, need Hb at 10 for surgery - Monitor H/H dw Dr. Lester Admitting diagnosis: Symptomatic anemia (Sreedhar Mckeon MD R1) Attending Attestation 36 yo with uterine fibroids and AUB. Readmission for anemia. Failed prior uterine ablation. Active bleeding with poor response to blood transfusion. Ultrasound from earlier this month reviewed, with 2 noted uterine fibroids about 2-3 cm. Pathology reports from FEB 2016 reviewed and not dysplasia or hyperplasia noted. D/w Dr. Kristal Toro, oxidation operator for FACILITY MANAGER. She agrees that patient needs an urgent hysterectomy. Patient is receiving another 2 units of PRBC at this time. The OR and anesthesia have been notified. Reviewed our recommendations and plan of care with Mrs. Pelaez and her . She desires to proceed with a hysterectomy. She has failed outpatient management and a endometrial ablation. Discussed the risks of surgery including but not limited to infection, bleeding which may require more blood transfusions, injuring to surrounding organs such as the bowl or bladder, additional surgery, scarring/adhesion and pain. At this time she agrees she would like to retained both ovaries unless pathology noted. (Evelyne Lester MD) Scripts No Active Prescriptions or Reported Meds Sreedhar Mckeon MD R1 Aug 17, 2016 10:55 Evelyne Lester MD Aug 17, 2016 13:58
[2016-08-17] MEDS: medroxyPROGESTERone ACETATE 10 MG TAB PO SCH (11:18)
[2016-08-17] MEDS ORDERED: NEOSTIGMINE 3 MG/3 ML SYR IV ONE (12:00)
[2016-08-17] MEDS ORDERED: ONDANSETRON HCL 4 MG/2 ML VIAL IV PUSH ONE (12:00)
[2016-08-17] MEDS ORDERED: LACTATED RINGER'S 1000 ML INJ 1,000 ML IV ONE (12:00)
[2016-08-17] MEDS ORDERED: ACETAMINOPHEN 1000 MG/100 ML VIAL IV ONE (12:00)
[2016-08-17] MEDS ORDERED: SODIUM CHLORID 0.9% 500 ML INJ 500 ML IV ONE (12:00)
[2016-08-17] MEDS ORDERED: NORMOSOL R INJ 1,000 ML IV ONE (12:00)
[2016-08-17] MEDS ORDERED: SUGAMMADEX SODIUM 200 MG/2 ML VIAL IV PUSH ONE ×2 (12:00)
[2016-08-17] MEDS ORDERED: PROPOFOL 200 MG/20 ML AMP IV ONE (12:00)
[2016-08-17] MEDS: FERROUS SULFATE 325 MG (65 MG ELEMENTAL IRON) TAB PO SCH ×2 (12:25→21:00)
[2016-08-17] MEDS ORDERED: SODIUM CHLORIDE 0.9% 20 ML VIAL ONE (15:50)
[2016-08-17] MEDS ORDERED: METHYLENE BLUE 10 MG/ML VIAL ONE (15:50)
[2016-08-17] MEDS ORDERED: VASOPRESSIN INJ 20 UNITS/ML VIAL ONE (15:50)
[2016-08-17] MEDS ORDERED: ESTROGENS CONJUGATED VAG CREA 15 APPL/30 GM TUBE ONE (15:51)
[2016-08-17] MEDS ORDERED: FAMOTIDINE 20 MG/2 ML VIAL ONE (15:55)
[2016-08-17] MEDS ORDERED: HYDROmorphone HCL PF 2 MG/ML VIAL ONE (15:55)
[2016-08-17] MEDS ORDERED: MIDAZOLAM HCL 2 MG/2 ML VIAL ONE (15:55)
[2016-08-17] MEDS ORDERED: fentaNYL CITRATE 250 MCG/5 ML AMP ONE ×2 (15:55→21:24)
[2016-08-17] MEDS ORDERED: METOCLOPRAMIDE HCL 10 MG/2 ML VIAL ONE (15:55)
[2016-08-17] MEDS ORDERED: ceFAZolin 2 GM PREMIX 50 ML ONE (16:55)
[2016-08-17 18:00] LABS: BLOOD GAS BASE EXCESS -1.9 mmol/L (-2-2); BLOOD GAS CARBOXYHEMOGLOBIN 2.2 % (0-4); BLOOD GAS HCO3 21 mmol/L (22-26); BLOOD GAS METHEMOGLOBIN 1.2 % (0-2); BLOOD GAS O2 HGB SATURATION 97 % (90-100); BLOOD GAS OXYGEN CONTENT 10.7 Vol % (12.0-20.0); BLOOD GAS PCO2 30 mmHg (38-42); BLOOD GAS PO2 258 mmHg (61-120); BLOOD GAS TOTAL HGB 7.4 G/DL (12.0-16.0); TEMP CORR TO 98.6
[2016-08-17 18:01] LABS: CRITICAL VALUE NO; DRAW SITE O.R.GAS; OXYGEN DEVICE O.R. GAS; STAT YES
[2016-08-17 18:40] LABS: BLOOD GAS BASE EXCESS -2.2 mmol/L (-2-2); BLOOD GAS CARBOXYHEMOGLOBIN 1.9 % (0-4); BLOOD GAS HCO3 22 mmol/L (22-26); BLOOD GAS METHEMOGLOBIN 1.1 % (0-2); BLOOD GAS O2 HGB SATURATION 97 % (90-100); BLOOD GAS OXYGEN CONTENT 12.3 Vol % (12.0-20.0); BLOOD GAS PCO2 38 mmHg (38-42); BLOOD GAS PO2 243 mmHg (61-120); BLOOD GAS TOTAL HGB 8.6 G/DL (12.0-16.0); TEMP CORR TO 98.6
[2016-08-17 18:41] LABS: CRITICAL VALUE NO; DRAW SITE OR GAS; OXYGEN DEVICE O.R. GAS; STAT YES
--- NOTE | 2016-08-17 21:23 | EKG ---
Date Performed: 08/16/2016 Time Performed: 12:20:56 PTAGE: 36 years EKG: Sinus rhythm NORMAL ECG PREVIOUS TRACING : 02/03/2016 04.00 DOCTOR: Tre Valentino Interpretating Date/Time 08/17/2016 21:11:47
[2016-08-17] MEDS ORDERED: *morphine SULFATE 8 MG/ML PERIprocedure ONLY ONE (22:01)
[2016-08-17] MEDS ORDERED: MORPHINE SULFATE 30 MG/30 ML PCA ONE (22:01)
[2016-08-17] MEDS ORDERED: LACTATED RINGER'S 1000 ML INJ 1,000 ML ONE (22:03)
[2016-08-17] MEDS ORDERED: KETOROLAC TROMETHAMINE 30 MG/ML (IVP) VIAL ONE (22:08)
[2016-08-17] MEDS ORDERED: NALOXONE HCL 0.4 MG/ML AMP IV PRN (22:15)
[2016-08-17] MEDS ORDERED: diphenhydrAMINE HCL 25 MG CAP PO PRN (22:15)
[2016-08-17] MEDS ORDERED: MORPHINE SULFATE 30 MG/30 ML PCA IV SCH (22:15)
[2016-08-18] VITALS (7 sets, daily range): BP systolic 115–142; BP diastolic 55–89; PULSE 69–88; RESP 17–20; TEMP 96.6–98.9; O2SAT 99–100
[2016-08-18 05:25] LABS: HEMATOCRIT 31.8 % (35.0-46.0); MEAN CELL VOLUME 73.6 FL (80.0-100.0); MEAN CORPUSCULAR HEMOGLOBIN 24.6 PG (27.0-34.0); MEAN CORPUSCULAR HGB CONC 33.5 % (32.0-36.0); PLATELET COUNT 183 TH/MM3 (150-450); RED BLOOD COUNT 4.33 MIL/MM3 (4.00-5.30); RED CELL DISTRIBUTION WIDTH 29.8 % (11.6-17.2); WHITE BLOOD COUNT 10.3 TH/MM3 (4.0-11.0)
[2016-08-18 05:35] LABS: REVIEW FLAG FINAL
[2016-08-18 05:50] LABS: BICARBONATE 25.5 MEQ/L (21.0-32.0); POTASSIUM 3.7 MEQ/L (3.5-5.1)
[2016-08-18] MEDS: PCA - TOTAL MG MORPHINE DELIVERED PER SHIFT SCH ×3 (06:00→21:49)
[2016-08-18] MEDS: FERROUS SULFATE 325 MG (65 MG ELEMENTAL IRON) TAB PO SCH ×2 (08:15→21:49)
[2016-08-18] MEDS: medroxyPROGESTERone ACETATE 10 MG TAB PO SCH (08:15)
[2016-08-18] MEDS: SODIUM CHLORIDE 0.9% FLUSH 5 ML FLUSH FLUSH SCH ×2 (08:15→21:00)
[2016-08-18] MEDS: DOCUSATE SODIUM 50 MG/SENNA 8.6 MG TAB PO SCH ×2 (09:00→21:49)
[2016-08-18] MEDS ORDERED: IBUPROFEN 600 MG TAB PO PRN (10:00)
[2016-08-18] MEDS ORDERED: ONDANSETRON ODT 4 MG TAB PO PRN (10:00)
[2016-08-18] MEDS: SODIUM CHLOR 0.9% 1000 ML INJ 1,000 ML IV SCH ×3 (10:00→21:51)
[2016-08-18] MEDS ORDERED: ACETAMINOPHEN/HYDROcodone 325 MG/5 MG TAB PO PRN (10:00)
[2016-08-18] MEDS: ACETAMINOPHEN/HYDROcodone 325 MG/10 MG TAB PO PRN ×2 (10:00→16:23)
--- NOTE | 2016-08-18 11:28 | HHI.FPPN ---
Subjective Remarks Overnight, SAMMY. POD1 hysterectomy. C/o diffuse abd pain. No laparascopic sites visualized- presumed vaginal surgery. Pt not using [employer] secondary to nausea. Will adjust pain meds. NPO at present. Will advance diet. Patient not very hungry at present. Denies f/c, n/v, cp/sob. H/H responded appropriately this AM s/p 3 units RBC yesterday Objective Vitals Vital Signs Date Time Temp Pulse Resp B/P Pulse Ox O2 Delivery O2 Flow Rate FiO2 08/18/16 11:04 17 08/18/16 08:13 69 08/18/16 08:00 97.9 83 17 127/59 99 08/18/16 06:00 18 08/18/16 04:00 97.2 70 17 138/87 100 08/18/16 00:04 14 08/18/16 00:00 96.6 78 19 142/89 100 08/17/16 23:00 97.7 77 16 157/88 100 Nasal Cannula 2 08/17/16 22:45 74 15 158/84 100 Nasal Cannula 3 08/17/16 22:30 79 20 154/84 100 Nasal Cannula 3 08/17/16 22:15 77 16 148/79 100 Nasal Cannula 3 08/17/16 22:00 75 16 158/84 100 Nasal Cannula 3 08/17/16 21:45 74 15 158/84 100 Nasal Cannula 3 08/17/16 21:30 74 18 148/79 100 Nasal Cannula 4 08/17/16 21:15 98.3 75 14 153/83 100 Nasal Cannula 4 08/17/16 15:10 99.2 82 18 151/99 100 08/17/16 14:47 98.2 96 19 145/78 81 08/17/16 11:30 98.1 86 17 122/73 99 I/O 08/17/16 08/17/16 08/17/16 08/18/16 08/18/16 08/18/16 07:00 15:00 23:00 07:00 15:00 23:00 Intake Total 0 ml 780 ml 3500 ml 724 ml 0 ml Output Total 600 ml 1300 ml 650 ml Balance 0 ml 180 ml 2200 ml 74 ml 0 ml Intake Oral 480 ml 0 ml 0 ml IV Total 0 ml 50 ml 724 ml Packed Cells 300 ml 500 ml Other 2950 ml Output Urine Total 600 ml 100 ml 650 ml Estimated Blood Loss 500 ml Other 700 ml # Bowel Movements 0 # Sanitary Pads 1 Pads 1 Pads Result Diagram: 08/18/166 08/18/16 0416 Imaging Last Impressions Chest X-Ray 08/16/16 1213 Signed Impressions: Service Date/Time: Tuesday, August 16, 2016 12:38 - CONCLUSION: Mild cardiomegaly. Otherwise unremarkable exam. Delmy Rodriguez MD Objective Remarks GENERAL: AA in mild distress secondary to pain, teary. SKIN: No rashes, ecchymoses or lesions. Cool and dry. HEENT: PERRL. MMM. CV: RRR. No murmurs. RESP: Lungs CTAB. No wheezing. GI: Diffusely tender to palpation with guarding. No masses. No incisions seen + BS MUSCULOSKELETAL: Bilateral lower extremities with 1+ pitting edema up to the mid tibia. NEUROLOGICAL: Awake and alert. Cranial nerves II through XII intact. Motor and sensory grossly within normal limits. Normal speech. A/P Assessment and Plan 36y AA female with leiomyomata and AUB requiring blood transfusions hospitalized 08/16/16 for vaginal bleeding and acute blood loss anemia secondary to abnormal uterine bleeding. S/p hysterectomy 08/17/16 Discharge Planning 1-3 days, pending recovery from surgery, stable H/H, and pain control and SURGICAL SERVICES ASST recs SDW: Dr. Mcfadden DW: Dr. Shah Problem List: (1) Acute blood loss anemia Status: Acute Plan: H/H 7.9/24.1 on admission. Received 1 unit 08/16/16, 2 units 08/17/16. Acute blood loss anemia secondary to vaginal bleeding Plan -Consulted Gynecology - daily CBC -s/p hysterectomy 08/17/16 -pain control: ibuprofen 600mg q6h P1-4, norco 5/325 q4h P5-10, norco 10/325 q6h breakthrough -MIVF- NS @120mL/hr -Regular diet, advance as tolerated (2) Abnormal uterine bleeding (AUB) Status: Acute Plan: 07/30 Pelvic US: Mild Leiomyomatous uterus. Normal endometrial stripe. Both ovaries unremarkable for age. See plan above. (3) Nutrition, metabolism, and development symptoms Status: Acute Plan: Fluids: MIVF NS @120mL/hr Electrolytes: wnl, continue to monitor and replete as needed Nutrition: Regular Basic Diet DVT PPx: SCD's, hold chemical anticoagulation for active bleed GI ppx: not indicated Bowel reg: Joanie-Colase 2 tab BID [facility] Pura Monteiro MD R1 Aug 18, 2016 11:27
[2016-08-18] MEDS ORDERED: KETOROLAC TROMETHAMINE 30 MG/ML (IVP) VIAL IV PUSH PRN (11:30)
[2016-08-18] MEDS: KETOROLAC TROMETHAMINE 30 MG/ML (IVP) VIAL IV PUSH SCH ×2 (14:04→21:49)
[2016-08-19] VITALS: BP 115/68; PULSE 78; RESP 20; TEMP 98.1; O2SAT 97
[2016-08-19 04:00] VITALS: BP 125/77; PULSE 82; RESP 20; TEMP 98.6; O2SAT 98
[2016-08-19 05:48] LABS: AUTOMATED NEUTROPHIL # 5.1 TH/MM3 (1.8-7.7); BASOPHIL % 0.2 % (0.0-2.0); EOSINOPHIL # 0.2 TH/MM3 (0-0.4); EOSINOPHIL % 2.1 % (0.0-4.0); HEMATOCRIT 27.6 % (35.0-46.0); LYMPH % 22.6 % (9.0-44.0); LYMPHOCYTE # 1.7 TH/MM3 (1.0-4.8); MEAN CELL VOLUME 72.8 FL (80.0-100.0); MEAN CORPUSCULAR HEMOGLOBIN 24.5 PG (27.0-34.0); MEAN CORPUSCULAR HGB CONC 33.6 % (32.0-36.0); MONO % 8.4 % (0.0-8.0); NEUT % 66.7 % (16.0-70.0); PLATELET COUNT 186 TH/MM3 (150-450); RED BLOOD COUNT 3.79 MIL/MM3 (4.00-5.30); RED CELL DISTRIBUTION WIDTH 30.4 % (11.6-17.2); WHITE BLOOD COUNT 7.7 TH/MM3 (4.0-11.0)
[2016-08-19 05:53] LABS: ALT (GPT) 11 U/L (10-53); ANION GAP 8 MEQ/L (5-15); AST (GOT) 13 U/L (15-37); BICARBONATE 25.7 MEQ/L (21.0-32.0); BLOOD UREA NITROGEN 8 MG/DL (7-18); CHLORIDE 109 MEQ/L (98-107); GLOMERULAR FILTRATION RATE 121 ML/MIN (>89); POTASSIUM 3.5 MEQ/L (3.5-5.1); SODIUM (NA) 143 MEQ/L (136-145)
[2016-08-19 05:56] LABS: ALKALINE PHOSPHATASE 71 U/L (45-117); TOTAL BILIRUBIN ADULT 0.6 MG/DL (0.2-1.0)
[2016-08-19] MEDS: PCA - TOTAL MG MORPHINE DELIVERED PER SHIFT SCH (06:00)
[2016-08-19] MEDS: KETOROLAC TROMETHAMINE 30 MG/ML (IVP) VIAL IV PUSH SCH (06:01)
[2016-08-19 06:18] LABS: HEMO FLAGS AUTO DIFF
[2016-08-19 07:39] LABS: SCAN/DIFF AUTO DIFF CONFIRMED; SPHEROCYTES 1+ (NORMAL)
[2016-08-19] MEDS: medroxyPROGESTERone ACETATE 10 MG TAB PO SCH (07:49)
[2016-08-19] MEDS: FERROUS SULFATE 325 MG (65 MG ELEMENTAL IRON) TAB PO SCH (07:49)
[2016-08-19] MEDS: DOCUSATE SODIUM 50 MG/SENNA 8.6 MG TAB PO SCH (07:49)
[2016-08-19] MEDS: SODIUM CHLORIDE 0.9% FLUSH 5 ML FLUSH FLUSH SCH (07:51)
[2016-08-19 08:00] VITALS: BP 130/73; PULSE 89; RESP 16; TEMP 97.5; O2SAT 98
--- NOTE | 2016-08-19 08:12 | HHI.FPPN ---
Subjective Remarks No acute issues overnight. Vitals are stable, patient remains afebrile. She is feeling much better than yesterday. She is tolerating by mouth. She does have a lot of gas buildup and has not had a bowel movement since the operation. She denies any chest pain, shortness of breath, fever, chills, nausea or vomiting. Her pain is well controlled and she is only occasionally needing a pain medication. She continues to have vaginal spotting. She feels ready to go home today. Objective Vitals Vital Signs Date Time Temp Pulse Resp B/P Pulse Ox O2 Delivery O2 Flow Rate FiO2 08/19/16 06:00 18 08/19/16 04:00 98.6 82 20 125/77 98 08/19/16 00:00 98.1 78 20 115/68 97 08/18/16 21:49 18 08/18/16 20:00 98.8 88 20 121/76 99 08/18/16 17:23 18 08/18/16 16:05 98.7 87 20 115/63 100 08/18/16 15:04 16 08/18/16 14:26 17 08/18/16 13:24 18 08/18/16 11:47 98.9 80 19 115/55 100 08/18/16 11:04 17 08/18/16 08:13 69 I/O 08/18/16 08/18/16 08/18/16 08/19/16 08/19/16 08/19/16 07:00 15:00 23:00 07:00 15:00 23:00 Intake Total 724 ml 1103 ml 768 ml 748 ml Output Total 650 ml 0 ml 500 ml 300 ml Balance 74 ml 1103 ml 268 ml 448 ml Intake Oral 0 ml 480 ml 240 ml 240 ml IV Total 724 ml 623 ml 528 ml 508 ml Output Urine Total 650 ml 0 ml 500 ml 300 ml # Bowel Movements 0 # Sanitary Pads 1 Pads 1 Pads 1 Pads 1 Pads Result Diagram: 08/19/1641108/19/16411 Imaging Last Impressions Chest X-Ray 08/16/16 1213 Signed Impressions: Service Date/Time: Tuesday, August 16, 2016 12:38 - CONCLUSION: Mild cardiomegaly. Otherwise unremarkable exam. Delmy Rodriguez MD Objective Remarks GENERAL: Well-nourished, well-developed female, sitting up in bed in no acute distress. SKIN: No rashes, ecchymoses or lesions. Cool and dry. HEENT: PERRL. MMM. CV: RRR. No murmurs. RESP: Lungs CTAB. No wheezing. GI: Mildly tender to palpation, no masses. Bowel sounds present and active. MUSCULOSKELETAL: Trace edema in bilateral lower extremities. NEUROLOGICAL: Awake and alert. Cranial nerves II through XII intact. Motor and sensory grossly within normal limits. Normal speech. A/P Assessment and Plan 36yo AA female with a past medical history significant for leiomyomata and AUB requiring blood transfusions admitted for acute blood loss anemia secondary to abnormal uterine bleeding. S/p hysterectomy 08/17/16. Discharge Planning Anticipate discharge home today. dw Dr. Shah Problem List: (1) Acute blood loss anemia Status: Resolved Plan: Acute blood loss anemia secondary to vaginal bleeding s/p 5 units PRBC H/H now stable post-op Plan -Consulted Gynecology- performed total vaginal/abdominal hysterectomy on 08/17 -pain control: ibuprofen 600mg q6h P1-4, norco 5/325 q4h P5-10, norco 10/325 q6h breakthrough -Regular diet (2) Abnormal uterine bleeding (AUB) Status: Chronic Plan: 07/30 Pelvic US: Mild Leiomyomatous uterus. Normal endometrial stripe. Both ovaries unremarkable for age. See plan above. (3) Nutrition, metabolism, and development symptoms Status: Acute Plan: Fluids: DC fluids Electrolytes: wnl, continue to monitor and replete as needed Nutrition: Regular Basic Diet DVT PPx: SCD's, chemical anticoagulation held for active bleed Bowel reg: Joanie-Colase 2 tab BID TARIQ, Milk of Mg today to encourage BM prior to DC Maria Dolores Menendez MD R2 Aug 19, 2016 08:12
[2016-08-19] MEDS ORDERED: FERR325T PO (08:14)
[2016-08-19] MEDS ORDERED: NORC5TAB PO (08:14)
[2016-08-19] MEDS ORDERED: MEDR10TA7 PO (08:14)
[2016-08-19] MEDS ORDERED: SENN1TAB PO (08:14)
--- NOTE | 2016-08-19 08:14 | HHI.DCPOC ---
Discharge Care Plan Diagnosis: (1) Acute blood loss anemia (2) Leiomyoma (3) Abnormal uterine bleeding (AUB) Goals to Promote Your Health * To prevent worsening of your condition and complications * To maintain your health at the optimal level Directions to Meet Your Goals Take your medications as prescribed Follow your dietary instruction Follow activity as directed Keep your appointments as scheduled Take your immunizations and boosters as scheduled If your symptoms worsen call your PCP, if no PCP go to Urgent Care Center or Emergency Room Smoking is Dangerous to Your Health. Avoid second hand smoke Call the 24-hour hour crisis hotline for domestic abuse at Maria Dolores Menendez MD R2 Aug 19, 2016 08:14
[2016-08-19] MEDS ORDERED: MAGNESIUM HYDROXIDE SUSP 30 ML CUP PO ONE (08:15)
--- NOTE | 2016-08-19 08:20 | HHI.DS ---
Discharge Summary Admission Date Aug 16, 2016 at 11:58 Discharge Date: Aug 19, 2016 Admitting Diagnosis Symptomatic anemia (1) Acute blood loss anemia Diagnosis: Principal Plan: Acute blood loss anemia secondary to vaginal bleeding s/p 5 units PRBC H/H now stable post-op Plan -Consulted Gynecology- performed total vaginal/abdominal hysterectomy on 08/17 -pain control: ibuprofen 600mg q6h P1-4, norco 5/325 q4h P5-10, norco 10/325 q6h breakthrough -Regular diet (2) Abnormal uterine bleeding (AUB) Plan: 07/30 Pelvic US: Mild Leiomyomatous uterus. Normal endometrial stripe. Both ovaries unremarkable for age. See plan above. (3) Nutrition, metabolism, and development symptoms Plan: Fluids: DC fluids Electrolytes: wnl, continue to monitor and replete as needed Nutrition: Regular Basic Diet DVT PPx: SCD's, chemical anticoagulation held for active bleed Bowel reg: Joanie-Colase 2 tab BID [facility] Gynecology Procedures 08/17/16 Total vaginal/abdominal hysterectomy Brief History On admission: Patient is a 36-year-old female with a past medical history significant for leiomyomata and abnormal uterine bleeding requiring blood transfusions who presents today for vaginal bleeding. Of note, patient was hospitalized from -07/30 for acute blood loss anemia secondary to abnormal uterine bleeding as well. She was transfused a total of 3 units of packed red blood cells. After discharge, she continued spotting for about one week and then stopped bleeding altogether for about 3 days. After that, the bleeding started again and then turned into passing of large clots. The bleeding has been getting progressively worse over the past week. Today, she has soaked 4 pads in the last 23 hours. She also complains of fatigue, occasional shortness of breath, and a constant, aching, frontal headache. She also endorses central pelvic pain described as a sharp pain that comes and goes. She denies any chest pain, dizziness, or lightheadedness. Her feet initially swelled up after her transfusions during her last hospitalization, and have become progressively more swollen over the past 2 days. She was supposed to follow-up with [place] at an appointment yesterday, but was apparently told not to come to the appointment because she was actively bleeding. She rescheduled that appointment for next week. CBC/BMP: 08/19/16 0412 08/19/16 0412 Significant Findings Laboratory Tests Test 08/16/16 08/16/16 08/17/16 08/17/16 09:50 23:28 04:09 17:50 Red Blood Count 3.66 MIL/MM3 3.31 MIL/MM3 (4.00-5.30) (4.00-5.30) Hemoglobin 7.9 GM/DL 7.5 GM/DL 7.3 GM/DL (11.6-15.3) (11.6-15.3) (11.6-15.3) Hematocrit 24.1 % 22.5 % 22.3 % (35.0-46.0) (35.0-46.0) (35.0-46.0) Mean Corpuscular Volume 65.8 FL 67.5 FL (80.0-100.0) (80.0-100.0) Mean Corpuscular Hemoglobin 21.6 PG 22.1 PG (27.0-34.0) (27.0-34.0) Red Cell Distribution Width 30.3 % 29.9 % (11.6-17.2) (11.6-17.2) Neutrophils % (Manual) 71 % (16-70) 73 % (16-70) Target Cells 2+ (NORMAL) 1+ (NORMAL) Keratocytes OCC (NORMAL) OCC (NORMAL) Potassium Level 3.4 MEQ/L 3.1 MEQ/L (3.5-5.1) (3.5-5.1) Aspartate Amino Transf 13 U/L (15-37) (AST/SGOT) Random Glucose 117 MG/DL (74-106) Calcium Level 8.4 MG/DL (8.5-10.1) Blood Gas HCO3 21 mmol/L (22-26) Arterial Blood pH 7.47 (7.380-7.420) Arterial Blood Partial 30 mmHg (38-42) Pressure CO2 Arterial Blood Partial 258 mmHg Pressure O2 (61-120) Arterial Blood Oxygen Content 10.7 Vol % (12.0-20.0) Blood Gas Hemoglobin 7.4 G/DL (12.0-16.0) Test 08/17/16 08/18/16 08/19/16 18:27 04:16 04:12 Blood Gas Base Excess -2.2 mmol/L (-2-2) Arterial Blood Partial 243 mmHg Pressure O2 (61-120) Blood Gas Hemoglobin 8.6 G/DL (12.0-16.0) Hemoglobin 10.7 GM/DL 9.3 GM/DL (11.6-15.3) (11.6-15.3) Hematocrit 31.8 % 27.6 % (35.0-46.0) (35.0-46.0) Mean Corpuscular Volume 73.6 FL 72.8 FL (80.0-100.0) (80.0-100.0) Mean Corpuscular Hemoglobin 24.6 PG 24.5 PG (27.0-34.0) (27.0-34.0) Red Cell Distribution Width 29.8 % 30.4 % (11.6-17.2) (11.6-17.2) Blood Urea Nitrogen 5 MG/DL (7-18) Random Glucose 127 MG/DL (74-106) Calcium Level 8.2 MG/DL (8.5-10.1) Red Blood Count 3.79 MIL/MM3 (4.00-5.30) Monocytes (%) (Auto) 8.4 % (0.0-8.0) Spherocytes 1+ (NORMAL) Chloride Level 109 MEQ/L (98-107) Aspartate Amino Transf 13 U/L (15-37) (AST/SGOT) Albumin 2.8 GM/DL (3.4-5.0) Imaging Last Impressions Chest X-Ray 08/16/16 1213 Signed Impressions: Service Date/Time: Tuesday, August 16, 2016 12:38 - CONCLUSION: Mild cardiomegaly. Otherwise unremarkable exam. Delmy Rodriguez MD PE at Discharge GENERAL: Well-nourished, well-developed female, sitting up in bed in no acute distress. SKIN: No rashes, ecchymoses or lesions. Cool and dry. HEENT: PERRL. MMM. CV: RRR. No murmurs. RESP: Lungs CTAB. No wheezing. GI: Mildly tender to palpation, no masses. Bowel sounds present and active. MUSCULOSKELETAL: Trace edema in bilateral lower extremities. NEUROLOGICAL: Awake and alert. Cranial nerves II through XII intact. Motor and sensory grossly within normal limits. Normal speech. Hospital Course Patient is a 36-year-old female with a past medical history significant for leiomyomata and AUB requiring blood transfusions who is admitted for acute blood loss anemia secondary to abnormal uterine bleeding. She received a total of 5 units of packed red blood cells. Gynecology was consulted, and hysterectomy was performed by Dr. Toro on 08/17/16. Patient tolerated the procedure well and hemoglobin remained stable postop. Pain was well-controlled with [place] and ibuprofen. Patient felt ready for discharge home on postoperative day #2. She will follow-up with gynecology in one week. Pt Condition on Discharge: Stable Discharge Disposition: Discharge Home Discharge Instructions DIET: Follow Instructions for: As Tolerated, No Restrictions Activities you can perform: Regular-No Restrictions Follow up Referrals: [facility] [facility] [facility] - 1 Week New Medications: Hydrocodone-Acetaminophen ([place]) 5-325 mg Tab 1 TAB PO Q6H PRN PAIN #20 Ref 0 TAB Ferrous Sulfate (Ferrous Sulfate) 325 Mg Tab 325 MG PO BID #60 TAB Medroxyprogesterone Acetate (Medroxyprogesterone Acetate) 10 Mg Tab 10 MG PO DAILY #30 TAB Sennosides-Docusate Sodium (Senna Plus 8.6-50 mg) 1 Tab Tab 2 TAB PO BID #120 TAB Maria Dolores Menendez MD R2 Aug 19, 2016 08:20
--- NOTE | 2016-08-22 18:57 | MP ---
cc: KRISTAL RANDLE MD DATE OF SURGERY: 08/17/2016 PREOPERATIVE DIAGNOSIS: Menorrhagia, acute anemia from acute blood loss. Uterine fibroids. POSTOPERATIVE DIAGNOSIS Menorrhagia, acute anemia from acute blood loss. Uterine fibroids. OPERATION Total vaginal hysterectomy converted to total abdominal hysterectomy. SURGEON Kritsal Randle MD. ANESTHESIA General endotracheal COMPLICATIONS Conversion to laparotomy. ESTIMATED BLOOD LOSS: 500 cc SPECIMEN Uterus with cervix. INDICATIONS This 36-year-old multiparous female is known to have uterine fibroids. She had a D&C and endometrial ablation less then a year ago but has been bleeding acutely since then and presented to the emergency room with a hemoglobin of 7.3 post transfusion the patient's hemoglobin did not increase due to continued blood loss therefore it was determined that the patient needed an emergency hysterectomy. Review of the patient's ultrasound and bedside exam suggested that the uterus would be deliverable through the vagina and this was what was originally scheduled. FINDINGS AT SURGERY The patient was found to have a multiparous cervix that extended almost to the vaginal introitus with traction however, the patient's morbid obesity prevented adequate access to the vagina and after freeing the uterus approximately half way up each broad ligament the uterus would descend no further and the patient was converted to abdominal hysterectomy by laparotomy. the patient had normal pelvic anatomy. PROCEDURE The patient was taken to the operating room, placed supine on the operating table. After general endotracheal anesthetic she was prepped and draped in Yellow fin stirrups 2 grams of Ancef was administered intravenously as a weighted vaginal speculum was placed in the vagina. The anterior lip of the cervix was grasped with a single-tooth tenaculum. Dilute Pitressin was injected circumferentially followed by an incision. The cul-de-sac posteriorly was entered sharply and the weighted retractor was exchanged for an extra long weighted retractor. However because of the patient's volume of her buttocks even the longest retractor kept slipping out of the cul-de-sac. Anteriorly the uterovesical space was developed but the peritoneal cavity was not reached. The uterosacral ligament was identified, clamped, cut and Rosalia suture ligature tied this was also done in the other side followed by the cardinal ligament being clamped, cut and Rosalia suture ligated. Only about two or three bites were possible on each side after this with no further descent to the uterus. Therefore the patient was case was converted to a total abdominal hysterectomy. The skin was prepped for a Pfannenstiel incision which was made with a #10 blade. Subcutaneous tissues were divided with cautery. The fascia was incised elliptically sharply, the midline was developed subfascially. The rectus muscles were bluntly divided and the peritoneum was entered bluntly. The incision was extended transversely in cephalad taking care to avoid bowel and bladder. The O'Zach-O'Arevalo retractor was used and the bowel was packed away. The patient was found to have pelvic anatomy as noted above long Mely clamps were placed on the broad ligaments bilaterally. The round ligaments were identified, Suture ligated and divided and the bladder flap was developed easily since it had been develop vaginally up to the level of the peritoneum. The cul-de-sac was already opened the adnexal appeared normal and the infundibulopelvic ligament was grasped with a Marcello clamp a window was made in the broad ligament and the Rosalia clamp was placed from the window across the utero-ovarian ligament. This was divided and suture ligature placed both ovaries were rather large and extended into the cul-de-sac so they were tacked to the pelvic sidewall bilaterally. Only about three bites were necessary on each side before the uterus from the remainder of the field. These were Rosalia suture ligated. The vaginal cuff was then identified and closed with running locked suture. Careful inspection showed only a few small capillary bleeds which were easily cauterized. O Vicryl was used throughout this case up to this point. The O'Zach-O'Arevalo retractor was then removed the packing was removed, and sponge, needle and instrument counts were correct. The abdomen was closed in layers with 0 Vicryl in [id number] fashion reapproximating the rectus muscles and O PDS loop reapproximating the fascia. A few subcutaneous stitches were placed in interrupted fashion. Again using 0 Vicryl. The skin edges were reapproximated with 3-0 Monocryl. Dermabond was applied as a dressing. The patient was transferred to the recovery room awake and breathing on her own. She received 2 units of blood intraoperatively as was previously planned. She remained hemodynamically stable throughout the case. MD LONNY Copeland/tim /9:24 PM /6:49 PM [email or web address]
== END 2016-08-19 11:08 | disposition home or self-care (01) | DRG 742 ==
LOC: NEPE 08:27 → NEDA 11:58 → N07B 15:02
PROVIDERS: ADMIT Family Medicine; ATTEND Family Medicine
PROC: 30233N1 Transfusion of Nonautologous Red Blood Cells into Peripheral Vein, Percutaneous Approach (ICD-10-PCS; 2016-08-16)
PROC: 0UTC0ZZ Resection of Cervix, Open Approach (ICD-10-PCS; 2016-08-17)
PROC: 0UT90ZZ Resection of Uterus, Open Approach (ICD-10-PCS; principal; 2016-08-17 17:01)
DX: D25.9 Leiomyoma of uterus, unspecified (principal); D62 Acute posthemorrhagic anemia; N92.0 Excessive and frequent menstruation with regular cycle; E66.01 Morbid (severe) obesity due to excess calories; Z68.27 Body mass index [BMI] 27.0-27.9, adult
CPT/HCPCS: 36430; 71020; 80048; 80053; 82805; 83880; 84702; 85007; 85014; 85018; 85025; 85027; 85610; 86850; 86900; 86901; 86920; 88307; 93005; 96374; J0131; J0690; J1170; J1885; J2250; J2270; J2405; J2710; J2765; J3010; J7030; J7040; J7050; J7120; P9016

== ENCOUNTER 2016-11-01 17:17 | Emergency (ER) | payer OTHER ==
[~2016-11-01] VITALS: Ht 180.3 cm; Wt 129.6 kg
[~2016-11-01 17:17] MED LIST changes: +FERR325T PO; +MEDR10TA7 PO; +NORC5TAB PO; -PROV10TA PO; +SENN1TAB PO
[2016-11-01 17:18] VITALS: BP 157/88; PULSE 104; RESP 20; TEMP 98; O2SAT 100
[2016-11-01] MEDS ORDERED: SODIUM CHLORIDE 0.9% FLUSH 10 ML FLUSH IVF PRN (19:45)
[2016-11-01 19:50] VITALS: RESP 18; O2SAT 99
--- NOTE | 2016-11-01 20:12 | RADRPT ---
EXAM DATE/TIME: 11/01/2016 19:59 [facility] COMPARISON: CHEST PA & LAT, August 16, 2016, 12:38. INDICATIONS : Chest pain, syncope. MEDICAL HISTORY : Hypertension. SURGICAL HISTORY : Hysterectomy. ENCOUNTER: Initial ACUITY: >1 year PAIN SCORE: 2/10 LOCATION: Bilateral chest FINDINGS: PA and lateral views of the chest demonstrate the lungs to be symmetrically aerated without evidence of mass, infiltrate or effusion. The cardiomediastinal contours are unremarkable. Osseous structure s are intact. CONCLUSION: No acute disease. Dallin Morales MD on November 01, 2016 at 20:09 Board Certified Radiologist. This report was verified electronically.
[2016-11-01 20:15] VITALS: BP_SYST 133; BP_SYST 137; BP_DIAS 86; BP_DIAS 87; PULSE 73
[2016-11-01 20:52] LABS: APTT (PATIENT) 24.6 SEC (24.3-30.1); PROTHROMBIN TIME - PATIENT 10.6 SEC (9.8-11.6)
[2016-11-01 21:13] LABS: ALKALINE PHOSPHATASE 100 U/L (45-117); ALT (GPT) 17 U/L (10-53); ANION GAP 7 MEQ/L (5-15); AST (GOT) 32 U/L (15-37); BICARBONATE 27.1 MEQ/L (21.0-32.0); BLOOD UREA NITROGEN 11 MG/DL (7-18); CHLORIDE 106 MEQ/L (98-107); GLOMERULAR FILTRATION RATE 101 ML/MIN (>89); MAGNESIUM 1.8 MG/DL (1.5-2.5); SODIUM (NA) 140 MEQ/L (136-145); TOTAL BILIRUBIN ADULT 0.4 MG/DL (0.2-1.0)
--- NOTE | 2016-11-01 21:23 | PD ---
HPI Chief Complaint: Chest Pain Time Seen by Provider: 19:35 Travel History International Travel<30 days: No Contact w/Intl Traveler<30days: No Traveled to known affect area: No History of Present Illness HPI Patient 36-year-old female presents emergency department for evaluation of ankle swelling and some palpitations and left side of her chest. Patient states been going on and off for approximately a month but all totaled ever since she had her hysterectomy which she had for dysfunction uterine bleeding. Patient was told that time that she did have an enlarged heart which she's never had worked up before. She is just established with a primary care physician but doesn't have an appointment for a few weeks. She on review of system endorses some mild shortness of breath and some mild orthopnea. She has some very vague descriptions of left-sided chest pain as well. No history of heart disease in herself or early SC in her family. Not on hormone replacement therapy, no stasis history no blood clot, history. PFSH Past Medical History Anemia: Yes Cancer: No Cardiovascular Problems: Yes (HTN) Diabetes: No Diminished Hearing: No Endocrine: No Gastrointestinal Disorders: No Genitourinary: No Hepatitis: No Hiatal Hernia: No Hypertension: Yes Immune Disorder: No Implanted Vascular Access Dvce: No Musculoskeletal: Yes (BACK) Neurologic: Yes (STROKE at 19) Psychiatric: No Reproductive: Yes (FIBROIDS, dysfunctional uterine bleeding) Respiratory: Yes Immunizations Current: No Thyroid Disease: No ?: Not : 2 Para: 2 Miscarriage: 0 : 0 Dilation and Curettage (D&C): Yes Past Surgical History Gynecologic Surgery: Yes (D&C) Hysterectomy: Yes Other Surgery: No Social History Alcohol Use: Yes (socially) Tobacco Use: No Substance Use: No Allergies-Medications (Allergen,Severity, Reaction): Coded Allergies: No Known Allergies (Unverified , 11/01/16) Reported Meds & Prescriptions Reported Meds & Active Scripts Active No Active Prescriptions or Reported Medications Review of Systems Except as stated in HPI: all other systems reviewed are Neg Physical Exam Narrative GENERAL: Well-developed well-nourished mildly obese in no apparent distress. SKIN: Focused skin assessment warm/dry. HEAD: Atraumatic. Normocephalic. EYES: Pupils equal and round. No scleral icterus. No injection or drainage. ENT: No nasal bleeding or discharge. Mucous membranes pink and moist. NECK: Trachea midline. No JVD. CARDIOVASCULAR: Regular rate and rhythm. No murmur appreciated. RESPIRATORY: No accessory muscle use. Clear to auscultation. Breath sounds equal bilaterally. GASTROINTESTINAL: Abdomen soft, non-tender, nondistended. Hepatic and splenic margins not palpable. MUSCULOSKELETAL: No obvious deformities. No clubbing. No cyanosis. Minimal bilateral ankle edema, no extension into the lower leg compartments. NEUROLOGICAL: Awake and alert. No obvious cranial nerve deficits. Motor grossly within normal limits. Normal speech. PSYCHIATRIC: Appropriate mood and affect; insight and judgment normal. Data Data Last Documented VS Vital Signs Date Time Temp Pulse Resp B/P Pulse Ox O2 Delivery O2 Flow Rate FiO2 11/01/16 21:54 100 Room Air 11/01/16 20:15 73 137/86 133/87 11/01/16 19:50 18 11/01/16 17:18 98.0 Orders Electrocardiogram (11/01/16 17:25) Complete Blood Count With Diff (11/01/16 17:25) Ckmb (Isoenzyme) Profile (11/01/16 17:25) Troponin I (11/01/16 17:25) B-Type Natriuretic Peptide (11/01/16 19:40) Magnesium (Mg) (11/01/16 19:40) Prothrombin Time / Inr (Pt) (11/01/16 19:40) Act Partial Throm Time (Ptt) (11/01/16 19:40) Ecg Monitoring (11/01/16 19:40) Bilateral Bp Monitoring (11/01/16 19:40) Iv Access Insert/Monitor (11/01/16 19:40) Oximetry (11/01/16 19:40) Oxygen Administration (11/01/16 19:40) Sodium Chloride 0.9% Flush (Ns Flush) (11/01/16 19:45) Chest, Pa & Lat (11/01/16 19:40) Comprehensive Metabolic Panel (11/01/16 19:40) CKMB (11/01/16 20:25) CKMB% (11/01/16 20:25) Labs Laboratory Tests Test 11/01/16 11/01/16 20:25 22:10 Prothrombin Time 10.6 SEC Prothromb Time International 1.0 RATIO Ratio Activated Partial 24.6 SEC Thromboplast Time Sodium Level 140 MEQ/L Potassium Level 4.7 MEQ/L Chloride Level 106 MEQ/L Carbon Dioxide Level 27.1 MEQ/L Anion Gap 7 MEQ/L Blood Urea Nitrogen 11 MG/DL Creatinine 0.78 MG/DL Estimat Glomerular Filtration 101 ML/MIN Rate Random Glucose 87 MG/DL Calcium Level 9.0 MG/DL Magnesium Level 1.8 MG/DL Total Bilirubin 0.4 MG/DL Aspartate Amino Transf 32 U/L (AST/SGOT) Alanine Aminotransferase 17 U/L (ALT/SGPT) Alkaline Phosphatase 100 U/L Total Creatine Kinase 261 U/L Creatine Kinase MB 1.1 NG/ML Creatine Kinase MB % 0.4 % Troponin I LESS THAN 0.02 NG/ML B-Type Natriuretic Peptide 14 PG/ML Total Protein 8.5 GM/DL Albumin 3.5 GM/DL White Blood Count 7.5 TH/MM3 Red Blood Count 4.63 MIL/MM3 Hemoglobin 10.5 GM/DL Hematocrit 31.9 % Mean Corpuscular Volume 68.7 FL Mean Corpuscular Hemoglobin 22.7 PG Mean Corpuscular Hemoglobin 33.1 % Concent Red Cell Distribution Width 26.4 % Platelet Count 229 TH/MM3 Mean Platelet Volume 9.4 FL Neutrophils (%) (Auto) 57.7 % Lymphocytes (%) (Auto) 32.8 % Monocytes (%) (Auto) 7.4 % Eosinophils (%) (Auto) 1.4 % Basophils (%) (Auto) 0.7 % Neutrophils # (Auto) 4.3 TH/MM3 Lymphocytes # (Auto) 2.5 TH/MM3 Monocytes # (Auto) 0.6 TH/MM3 Eosinophils # (Auto) 0.1 TH/MM3 Basophils # (Auto) 0.0 TH/MM3 CBC Comment AUTO DIFF MDM Medical Decision Making Medical Screen Exam Complete: Yes Emergency Medical Condition: Yes Interpretation(s) EKG showsSinus tachycardia at a rate of 106, there is a every [address] No [address] T changes. Normal axis normal R-wave progression. Comparison to 08/16/2016 shows no change. Abnormal EKG. Differential Diagnosis CHF, low likelihood for PE, pneumonia, palpitations. Narrative Course Patient roomed in the emergency department, she appears well in no apparent distress. Her heart rate has been in the 70s since being roomed in the emergency department. She is been satting well and has had no shortness of breath symptoms. Given her EKG does show evidence of right heart strains which is unchanged since July and some mild tachycardia she cannot be completely excluded for PE by clinical decision rules. This was discussed patient at length. However she has had no shortness of breath symptoms and her heart rate is been normal since being back in [facility]. I discussed with her that my index of suspicion is quite low given that the heart rate is normal and a few take this normal heart rate into account she is excludable by wells and per criteria. However the possibility is very slim and I have offered her a CAT scan of her chest. After discussing risks of radiation and contrast and the patient has told me that she's had problems doing CAT scans before secondary to anxiety she would prefer to go home at this time. I did discuss the risks of missing PEs including heart failure low risk of and disability and she understands would like to go home. She is to follow-up with her primary care physician in the next couple of weeks. Diagnosis Primary Impression: Palpitations Scripts No Active Prescriptions or Reported Meds Disposition: 01 DISCHARGE HOME Condition: Stable Eladio Fitzpatrick MD Nov 01, 2016 21:23
[2016-11-01 21:26] LABS: POTASSIUM 4.7 MEQ/L (3.5-5.1)
[2016-11-01 22:31] LABS: AUTOMATED NEUTROPHIL # 4.3 TH/MM3 (1.8-7.7); BASOPHIL % 0.7 % (0.0-2.0); EOSINOPHIL # 0.1 TH/MM3 (0-0.4); EOSINOPHIL % 1.4 % (0.0-4.0); HEMATOCRIT 31.9 % (35.0-46.0); LYMPH % 32.8 % (9.0-44.0); LYMPHOCYTE # 2.5 TH/MM3 (1.0-4.8); MEAN CELL VOLUME 68.7 FL (80.0-100.0); MEAN CORPUSCULAR HEMOGLOBIN 22.7 PG (27.0-34.0); MEAN CORPUSCULAR HGB CONC 33.1 % (32.0-36.0); MONO % 7.4 % (0.0-8.0); NEUT % 57.7 % (16.0-70.0); PLATELET COUNT 229 TH/MM3 (150-450); RED BLOOD COUNT 4.63 MIL/MM3 (4.00-5.30); RED CELL DISTRIBUTION WIDTH 26.4 % (11.6-17.2); WHITE BLOOD COUNT 7.5 TH/MM3 (4.0-11.0)
[2016-11-01 22:40] LABS: CREATINE KINASE 261 U/L (26-192)
[2016-11-01 22:43] LABS: HEMO FLAGS AUTO DIFF
[2016-11-01 23:05] LABS: CKMB 1.1 NG/ML (0.5-3.6)
[2016-11-01 23:48] LABS: SCAN/DIFF AUTO DIFF CONFIRMED
[2016-11-01 23:49] LABS: ACANTHOCYTES OCC (NORMAL); PLATELET ESTIMATE SMEAR NORMAL (NORMAL); TARGET CELLS 1+ (NORMAL)
[2016-11-01 23:50] LABS: PLATELET MORPHOLOGY ENLARGED (NORMAL)
--- NOTE | 2016-11-02 13:06 | EKG ---
Date Performed: 11/01/2016 Time Performed: 17:29:48 PTAGE: 36 years EKG: SINUS TACHYCARDIA NONSPECIFIC T-WAVE ABNORMALITY ABNORMAL RHYTHM ECG PREVIOUS TRACING : 08/16/2016 12.20 Compared to prior tracing no significant change DOCTOR: Chinedu Neville Interpretating Date/Time 11/02/2016 13:05:04
== END 2016-11-02 00:29 | disposition home or self-care (01) ==
LOC: NEPC 17:17
DX: R00.2 Palpitations (principal); R06.02 Shortness of breath; R00.0 Tachycardia, unspecified; I10 Essential (primary) hypertension
CPT/HCPCS: 71020; 80053; 82550; 82552; 83735; 83880; 84484; 85025; 85610; 85730; 93005